=== PATIENT | female | born 1965 | race Caucasian/White ===

== ENCOUNTER → 2018-03-16 08:54 | Outpatient (CLI) | payer BC, SELFPAY | PROVIDERS: Family Provider Internal Medicine; PCP Internal Medicine; Visit Provider Family Medicine | DX: R00.2 Palpitations (principal) | CPT/HCPCS: 93225; 93226 ==

== ENCOUNTER → 2018-03-20 06:45 | Outpatient (CLI) | payer BC, SELFPAY ==
[2018-03-20 08:01] LABS: Absolute Lymphocyte Count 2.33 X10^3/ul (0.83-4.51); Absolute Neutrophil Count 4.6 X10^3/uL (2.0-7.7); Basophil# 0.03 X10^3/uL; Basophil% 0.4 % (0-1); Eosinophil# 0.25 X10^3/uL; Hematocrit 41.6 % (37-47); Hemoglobin 13.9 g/dl (12.0-15.0); Lymphocyte # 2.33 X10^3/ul (4.0); Lymphocyte % 28.4 % (19-41); Mean Corp Hgb Conc 33.4 g/gl (32-36); Mean Corpuscular Hgb 31.3 pg (27.0-32.0); Mean Corpuscular Volume 93.7 fL (81-99); Mean Platelet Vol. 10.7 fl (6.2-12.0); Monocyte# 0.99 X10^3/uL; Monocyte% 12.1 % (0-10); Neutrophil # 4.59 X10^3/uL (2.7-7.7); Platelet Count 286 K/mm3 (150-450); RBC Distribution Width CV 14.1 % (11.6-14.6); RBC Distribution Width SD 46.7 fl (35.1-43.9); Red Blood Count 4.44 M/mm3 (4.2-5.4); White Blood Count 8.2 K/mm3 (4.4-11.0)
[2018-03-20 08:03] LABS: POSITIVE COUNT NO; POSITIVE DIFFERENTIAL NO; POSITIVE MORPHOLOGY NO
[2018-03-20 08:47] LABS: AST(SGOT) 26 U/L (15-37); Alanine Aminotransfer ALT/SGPT 30 U/L (13-56); Albumin, Serum 3.3 g/dL (3.2-5.0); Alkaline Phosphatase 106 U/L (45-117); Anion Gap 9 (5-15); BUN 18 mg/dL (7-18); BUN/Creat Ratio 15.3 RATIO (10-20); Bilirubin, Direct 0.08 mg/dL (0.00-0.30); Calcium,Total 8.5 mg/dL (8.5-10.1); Chloride 107 mmol/L (98-107); Cholesterol 252 mg/dL (200); Creatinine, Serum 1.18 mg/dL (0.55-1.02); EST Glomerular Filtration Rate 51 mL/min (>60); Est Glom Filt Rate - Afr Amer 61 mL/min (>60); Globulin 4.5 g/dL (2.2-4.2); Glucose 89 mg/dL (74-106); High Density Lipoprotein 53 mg/dL; Potassium 3.9 mmol/L (3.5-5.1); Protein, Total 7.8 g/dL (6.4-8.2); Sodium Level 143 mmol/L (136-145); Thyroid Stim Hormone (TSH) 5.65 uIU/mL (0.358-3.74); Triglycerides 160 mg/dL; Very Low Density Lipoprotein 32 mg/dL (5-40)
== END ==
PROVIDERS: Family Provider Internal Medicine; PCP Internal Medicine; Visit Provider Internal Medicine Cardiovascular Disease
DX: I47.1 Supraventricular tachycardia (principal); I47.2 Ventricular tachycardia; R06.02 Shortness of breath
CPT/HCPCS: 36415; 80048; 80061; 80076; 84443; 85025

== ENCOUNTER → 2018-03-25 10:31 | Outpatient (CLI) | payer BC, SELFPAY ==
--- NOTE | 2018-03-25 10:34 | ECHOD_ITS ---
Reason For Study: dyspnea/SOB Procedure This was a 2D Doppler, Color Flow transthoracic echocardiogram. Exam performed in department. Left Ventricle Normal size and thickness. The estimated ejection fraction is 55-60 %. Normal diastology for age. No regional wall motion abnormalities noted. Right Ventricle Normal size and thickness. Normal systolic function. Atria Normal left atrium. Normal right atrium. Normal atrial septum. Mitral Valve The mitral valve is structurally normal. No prolapse or stenosis seen. Trivial mitral valve insufficiency. Tricuspid Valve Normal tricuspid valve. Trivial tricuspid valve insufficiency. Right ventricular systolic pressure estimated to be 31 mmHg. Aortic Valve Trisinus/trileaflet aortic valve. Mild focal aortic valve thickening. Trivial aortic valve insufficiency. Pulmonic Valve Normal pulmonic valve. Great Vessels Normal aortic root. Normal arch. Normal inferior vena cava. Inferior vena cava collapse with sniff. Pericardium/Pleural No pericardial effusion. MMode/2D Measurements & Calculations LVIDd: 3.9 cm IVSd: 0.85 cm Ao root diam: 2.9 cm LVIDs: 2.8 cm LVPWd: 0.90 cm LA dimension: 3.0 cm FS: 28.8 % LAV(MOD-bp): 40.1 ml LA A4 area: 13.8 cm2 RA A4 area: 12.7 cm2 LAV(MOD-bp) Indexed: 23.3 ml/m2 LAV(MOD-sp2): 37.4 ml LAV(MOD-sp4): 36.9 ml Doppler Measurements & Calculations MV E max jessica: 60.7 cm/sec Ao V2 max: 108.6 cm/sec AI max jessica: 353.7 cm/sec MV A max jessica: 40.6 cm/sec Ao max P.7 mmHg AI max P.1 mmHg MV E/A: 1.5 AI dec slope: 173.2 cm/sec2 AI P1/2t: 598.2 msec LV V1 max: 74.5 cm/sec PA V2 max: 73.8 cm/sec TR max jessica: 240.2 cm/sec LV V1 max P.2 mmHg TR max P.3 mmHg Interpretation Summary The estimated ejection fraction is 55-60 %. Normal diastology for age. Trivial mitral valve insufficiency. Trivial tricuspid valve insufficiency. Right ventricular systolic pressure estimated to be 31 mmHg. Trivial aortic valve insufficiency. There is no comparison study available. Ordering Physician: Zak Maxwell Referring Physician: Purvi Jansen M.D. Performed By: Taylor Roblero RDCS, RVT
== END ==
PROVIDERS: Family Provider Internal Medicine; PCP Internal Medicine; Visit Provider Internal Medicine Cardiovascular Disease
DX: R00.2 Palpitations (principal); R06.02 Shortness of breath; I47.1 Supraventricular tachycardia; I47.2 Ventricular tachycardia
CPT/HCPCS: 93306

== ENCOUNTER → 2018-04-03 13:17 | Outpatient (CLI) | payer BC, SELFPAY ==
--- NOTE | 2018-04-03 13:20 | STE_ITS ---
Reason For Study: Arrhythmia Stress Results Protocol: Rohan Protocol Maximum Predicted HR: 166 bpm Target HR: 141 bpm% Max imum Predicted HR: 109 % DurationHeart Rate Stage (mm:ss) (bpm) BPCom ment Baseline 66 108/66 No Chest Pain Rohan Protocol Stage I 3:00 13 4 120/70No Chest Pain Rohan Protocol Stage II 3:00 15 7 146/72No Chest Pain; Mild Dyspnea Rohan Protocol Stage III 0:15 18 1 / No Chest Pain; Dizzy; Mild to Moderate Dyspnea Recovery 89 100/60 No Chest Pain Stress Duration: 6:15 mm:ss Maximum Stress HR: 181 bpmM ETS: 7 Baseline Echocardiogram Findings The estimated ejection fraction is 65 %. Stress Echo Wall motion Data Resting WMIntermediate WMStress WM Resting Wall Motion Wall Motion Stress No regional wall motion No regional wall motion abnormalities noted. abnormalities noted. EKG Data The baseline ECG demonstrates normal sinus rhythm with at rate of _ beats per minute. The patient exercised according to the regular Rohan protocol for a total duration of 6:15. The maximum heart rate attained was 181 beats per minute. This was 109% of maximum predicted heart rate. The patient exercised into stage 3 of the Rohan protocol. At peak exercise, upsloping ST changes only were noted, which did not meet the criteria for ischemia. No clinical angina was noted. Interpretation Summary The estimated ejection fraction is 65 %. Abnormal, adequate, treadmill echocardiogram. Positive for subtle ischemia along the inferior lateral gastelum. No anginal symptoms noted. Rare PVCs noted. Appropriate blood pressure response to exercise. Below average exercise capacity for age. Test terminated due to dizziness and dyspnea. Final LVEF of 60%. No complications. Ordering Physician: Zak Maxwell Referring Physician: Zak Maxwell Performed By: Yuly Rodriguez, RDCS, RVT
== END ==
PROVIDERS: Family Provider Internal Medicine; PCP Internal Medicine; Visit Provider Internal Medicine Cardiovascular Disease
DX: R00.2 Palpitations (principal); R06.02 Shortness of breath; I47.1 Supraventricular tachycardia; I47.2 Ventricular tachycardia
CPT/HCPCS: 93017; 93350

== ENCOUNTER → 2018-04-06 06:46 | Outpatient (CLI) | payer BC, SELFPAY ==
--- NOTE | 2018-04-07 08:50 | PFTCOMP ---
COMPLETE PULMONARY FUNCTION TEST INTERPRETATION Brief HPI: Patient is a 52 year old female, currently under the care of Dr. Maxwell, who presents to [facility] for complete pulmonary function tests secondary to diagnosis of dyspnea. Respiratory therapist reports good effort and reproducible results. Interpretation: Forced expiration spirometry shows a moderate large airways obstructive ventilatory defect with an FEV1 of 69% predicted. There is no significant bronchodilator response by strict ATS criteria. Spirograms are of good quality and plateau slowly, indicating slowly emptying areas of the lungs. The respiratory flow volume loop shows decreased expiratory flow rates at high lung volumes consistent with small airways obstruction. Lung volumes by body plethysmography show a decreased total lung capacity at 4.55 L, 82% predicted. All other lung volumes are reduced symmetrically. Diffusion capacity by carbon monoxide is normal at 81% predicted. The airway resistance is normal. No previous pulmonary function tests were available for review. Impression: Moderate mixed ventilatory defect with relative preservation of diffusing capacity.
== END ==
PROVIDERS: Family Provider Internal Medicine; PCP Internal Medicine; Visit Provider Internal Medicine Cardiovascular Disease
DX: I47.1 Supraventricular tachycardia (principal); I47.2 Ventricular tachycardia; R00.2 Palpitations; R06.02 Shortness of breath
CPT/HCPCS: 94060; 94726; 94729

== ENCOUNTER 2018-04-14 07:48 | Day surgery (SDC) | payer BC, SELFPAY ==
[2018-04-13 09:27] VITALS: BMI 21.4
[2018-04-14] VITALS (12 sets, daily range): BP systolic 106–131; BP diastolic 65–81; PULSE 60–72; RESP 16–18; TEMP 36.6–37.1; O2SAT 96–100
[2018-04-14 13:00] LABS: ACT Activated Clotting Time 219 sec (74-137)
--- NOTE | 2018-04-14 13:00 | EKG12_ITS ---
Test Reason : PRE-CATH Blood Pressure : / mmHG Vent. Rate : 057 BPM Atrial Rate : 057 BPM P-R Int : 102 ms QRS Dur : 084 ms QT Int : 422 ms P-R-T Axes : 056 058 053 degrees QTc Int : 410 ms Sinus bradycardia with short AR Otherwise normal ECG Confirmed by TOM JAQUEZ, WILIAN ([id number]), book editor LYNDSAY ADAME ([id number]) on 04/17/2018 8:34:41 AM Referred By: Zak Maxwell Confirmed By:WILIAN SANTOS MD
--- NOTE | 2018-04-14 13:10 | CL.I_ITS ---
Patient Name: ELSA ADAME Study Date: 04/14/2018 Performing: Zak Maxwell MD Ht: 66.92 inches 170 cm : 1965 Wt: 136.69 lbs 62 kg Age: 52 Gender: female BSA: 1.72 PROCEDURE(S) PERFORMED [id number]-WKQ/COR/LV [id number], CORONARY OR GRAFT, INITIAL VESSEL CLINICAL PROFILE AND CO-MORBIDITIES Indications: Suspected CAD, Other; abnormal stress test, dyspnea on exertion., New Onset Angina < = 2 months Heart Failure: None Stress/Imaging Stress Echocardiogram: Yes Result: Positive Intermediate Risk Stress Echocardiogra m: Positive Intermediate Risk Angina Classification Anginal Classification w/in 2 Weeks: CCS I CAD Presentations: Other: Dyspnea on exertion Comorbidities/Risk Factors: Hypertension Dyslipidemia CONCLUSIONS Single vessel CAD of the ostial LM Non obstructive coronary arteries Segmented LV systolic dysfunction- Mild Abnormal FFR of 0.82 of ostial LM with left dominant system; non-obstructive CAD of LAD and LCX. RECOMMENDATIONS Staged for FFR ASA Indefinitley CV surgical consult for CABG to LAD and dominant LCX vs high risk PCI/MANJIT of ostial LM. Follow up with Dr. Maxwell Sheath removal in ICU once ACT<170 sec. Continue asa/plavix for now in case pt is a candidate for LM stenting. No changes to ostial LM at conclusion of FFR of LM. DESCRIPTION OF PROCEDURE The patient arrived to the procedure lab. The risks and benefits of the procedure as well as a full d escription of our services here and lack of surgical backup were fully explained to the patient and/o r their significant other prior to the catheterization. The Timeout was completed, verifying the sunita ect patient and procedure. The patient's procedural site was prepped and draped in the usual fashion. Local anesthetic was given subcutaneously to right groin region with Lidocaine 2%. Using a modified Seldinger technique, arterial access was obtained via the right femoral artery, a 4Fr sheath was inse rted. Left Coronary Artery selective angiography was performed in multiple views using a 4 Fr. JL4 c atheter. Right Coronary Artery selective angiography was then performed in multiple views using a 4 F r. 3DRC catheter. Left Ventriculography was performed in LÓPEZ projection using a 4 Fr. Pigtail cathete r. LV to AO pullback pressures were then recordedThe images were reviewed and options discussed. A de cision was then made to proceed with an Intervention, IVUS or other adjunct procedure. Arterial sheath was exchanged for a 6 Fr Sheath. EBu 3.5 Guide catheter was inserted JL4 Guide cathet er was inserted and engaged into the LCA. The FFR/iFR wire was inserted. The arterial sheath was mora tured in place and capped CORONARY ANGIOGRAPHY DOMINANCE: Left Dominant LEFT HEART ASSESSMENT Left Ventricular Ejection Fraction: by LV Gram 65 % Normal Left Ventricular End Diastolic Pressure Apical Hypokinesis - Mild LEFT MAIN: 70 % Stenosis LEFT ANTERIOR DECENDING ARTERY: MID LAD: 30 % Stenosis CIRCUMFLEX ARTERY: PROX CIRC: 30 % Stenosis RIGHT CORONARY ARTERY: Angiographically normal INTERVENTION INFORMATION LESION SITE: Left Main (Ostial) Lesion Complexity: High/C, lesion at bifurcation: No, thrombus present: No, lesion length: 8 mm, olive rit lesion: Yes Pre Stenosis: 70 % Pre intervention AARON flow: 3 PROCEDURE: FFR Post Stenosis: 70 % Post intervention AARON flow: 3 Lesion Devices: [employer] ( Formerly [employer]) Coronary FFR Wire Medtronic 6 Fr EBU3.5 100cm Guide Catheter Medtronic 6 Fr JL4.0 100cm Guide Catheter COMPLICATIONS No Complications PROCEDURE MEDICATIONS Versed 1 mg IV Oxygen: 2 L/min via nasal cannula Adenosine drip for FFR 17.4 ml IV @ 04/14/2018 12:48:05 Heparin 5000 unit(s) IV 04/14/2018 12:35:36 Nitro 200 mcg IC 04/14/2018 12:23:59 Nitro 200 mcg IC 04/14/2018 12:23:59 IV Bolus: .9 NaCl 150 ml total 04/14/2018 12:39:42 IV Fluids: .9 NaCl decreased to 150 ml/hr 04/14/2018 12:58:55 SUMMARY OF HEMODYNAMIC DATA Time AIR REST ECG 08:05:48 AO 122/57 (83) SA 12:19:21 LV 119/-15, 6 12:30:13 LV 120/-15, 6 12:30:19 LVp 121/-19, 5 12:30:26 AOp 124/60 (86) 12:30:31 Signed By Zak Maxwell MD On 04/14/2018 13:09:42 Zak Maxwell MD
[2018-04-14 14:36] LABS: ACT Activated Clotting Time 175 sec (74-137)
[2018-04-14] MEDS: 0.9% Normal Saline 1,000 ML 150 ML IV (15:44)
== END 2018-04-14 21:28 | disposition home or self-care (01) ==
LOC: CLSP 07:49 → PCU 15:13
PROVIDERS: Family Provider Internal Medicine; PCP Internal Medicine; Visit Provider Internal Medicine Cardiovascular Disease
DX: R94.31 Abnormal electrocardiogram [ECG] [EKG] (principal); I20.9 Angina pectoris, unspecified; R06.00 Dyspnea, unspecified; I47.2 Ventricular tachycardia; R06.02 Shortness of breath; E03.2 Hypothyroidism due to medicaments and other exogenous substances; N26.1 Atrophy of kidney (terminal); Z86.718 Personal history of other venous thrombosis and embolism; Z87.891 Personal history of nicotine dependence; Z85.850 Personal history of malignant neoplasm of thyroid; Z79.82 Long term (current) use of aspirin; Z79.899 Other long term (current) drug therapy
CPT/HCPCS: 85347; 93005; 93458; 93571; 99152; 99153; J0153; J7030; J7040; Q9967; C1769; C1887; C1894

== ENCOUNTER → 2018-04-23 08:37 | Outpatient (CLI) | payer BC, SELFPAY ==
--- NOTE | 2018-04-23 08:39 | CDU_ITS ---
Reason For Study: bruit Rt. Velocities/BP Lt. Velocities/BP Prox CCA 105/27.6 cm/sec. Prox CCA 119/30.5 cm/sec. Mid CCA 116/33.4 cm/sec. Mid CCA 92.6/22.3 cm/sec. Dist CCA 87.4/29.3 cm/sec. Dist CCA 77.4/24.0 cm/sec. Prox ICA 72.7/25.2 cm/sec. Prox ICA 59.8/16.4 cm/sec. Mid ICA 92.0/33.4 cm/sec. Mid ICA 84.4/29.9 cm/sec. Dist ICA 76.0/27.4 cm/sec. Dist ICA 76.8/33.4 cm/sec. Rt. ICA/CCA = .8. Lt. ICA/CCA = .9. Prox ECA 101/24.0 cm/sec. Prox ECA 69.3/12.7 cm/sec. Rt. Vert. 48.1/13.5 cm/sec. Lt. Vert. 55.7/17.0 cm/sec. Right Extracranial There is intimal thickening but no significant atherosclerotic plaque noted in the right common carotid artery. There is intimal thickening but no significant atherosclerotic plaque noted in the right internal carotid artery. There is intimal thickening but no significant atherosclerotic plaque noted in the right external carotid artery. Antegrade flow is noted in the right vertebral artery. Left Extracranial There is intimal thickening but no significant atherosclerotic plaque noted in the left common carotid artery. There is intimal thickening but no significant atherosclerotic plaque noted in the left internal carotid artery. There is intimal thickening but no significant atherosclerotic plaque noted in the left external carotid artery. Antegrade flow is noted in the left vertebral artery. Procedure Carotid Duplex [id number]. The exam was diagnostic. Exam performed in department. Interpretation Summary No hemodynamically significant plague or stenosis bilateral extracranial internal carotid arteries with <50% stenosis bilaterally. Normal flow bilateral external carotids Patent and antegrade vertebrals bilaterally Ordering Physician: Zak Maxwell Performed By: Paddy Palomo RVT
== END ==
PROVIDERS: Family Provider Internal Medicine; PCP Internal Medicine; Visit Provider Internal Medicine Cardiovascular Disease
DX: I25.118 Atherosclerotic heart disease of native coronary artery with other forms of angina pectoris (principal); R09.89 Other specified symptoms and signs involving the circulatory and respiratory systems
CPT/HCPCS: 93880

== ENCOUNTER → 2018-07-17 12:36 | Outpatient (CLI) | payer BC, SELFPAY ==
--- NOTE | 2018-07-17 12:53 | PCM.CR.HP2 ---
CR - History & Physical - General Arrival date:: 07/17/18 Arrival time:: 12:53 Date of Referral:: 07/09/18 Date of CR Evaluation:: 07/17/18 Referring Physician: Dr. Zak Maxwell Primary Diagnosis: Z95.1 05/12/2018 - History of Present Cardiac Event Onset Date: Enter Onset Date of cardiac illnesses in Comment field below Current stable Angina Pectoris:: No Acute Myocardial Infarction within 12 months:: No Coronary Artery Bypass Graft:: Yes Heart valve replacement or repair:: No - Medications Home Medications: Ambulatory Orders Medication Instructions Recorded Levothyroxine Sodium [Levoxyl] 75 mcg PO QODAY 12/15/15 Multivitamin [Daily Multiple 1 ea PO DAILY 12/15/15 Vitamin] aspirin 81 mg tablet,delayed 81 mg PO QDAY 03/19/18 release cholecalciferol (vitamin D3) 1,000 1,000 unit PO QDAY 03/19/18 unit tablet acetaminophen 325 mg tablet 650 mg PO Q6H PRN tab 06/18/18 ferrous sulfate 325 mg (65 mg 325 mg PO DAILY tab 06/18/18 iron) tablet mometasone 0.1 % topical ointment 1 applic TOPICAL DAILY 06/18/18 ascorbic acid (vitamin C) 1,000 mg 1 g PO DAILY tab 07/09/18 tablet atorvastatin 40 mg tablet 40 mg PO DAILY #90 tab 07/09/18 sennosides 8.6 mg tablet 8.6 mg PO DAILY tab 07/09/18 metoprolol tartrate 25 mg tablet 12.5 mg PO BID #30 tab 07/13/18 - Allergies Allergies/Adverse Reactions: Allergies amlodipine besylate [From [facility]] Adverse Reaction (Verified 07/09/18 13:39) Swelling - Sleep Disorder Evaluation Hx of Sleep Apnea: No Do you snore loudly (louder than talking or can be heard through closed doors)?: No Do you often feel tired/ fatigued/ sleepy during daytime?: No Has anyone observed you stop breathing during sleep?: No History of Hypertension (for STOP score): Yes STOP Results: Negative Advanced Directives - Advanced Directives Power of Vegetable Cook: No Living Will: No Advance Directives Information Provided: No Advance Directives on File: No DNR Order?:: No Past Medical History - Past Medical Illness Medical History: Past Medical History (Last Updated 07/09/18 @ 13:41 by Tran Bains) History of adrenal adenoma (Chronic) Onset Date: ~2000 Z86.018 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 Maxwell, [facility]: refer to Kevin for PCI vs. 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 Maxwell, [facility]: refer to Kevin for PCI vs. CABG left main History of thyroidectomy (Chronic) Onset Date: ~2005 E89.0 History of breast biopsy Z98.890 benign History of colonoscopy Onset Date: ~08/23/13 Z98.890 History of colposcopy Onset Date: ~2008 Z98.890 History of hysteroscopy Onset Date: ~2014 Z98.890 with biopsy wwo D&C and/or polypectomy History of laparoscopic-assisted vaginal hysterectomy Onset Date: ~2015 Z90.710 secondary to fibroids, still has ovaries History of thumb surgery Onset Date: 02/17/14 Z98.890 [facility] right thumb History of loop electrical excision procedure (LEEP) Z98.890 - Family History Summary Family History: Family History (Last Reviewed 07/09/18 @ 11:49 by Tran Nolt) Mother Hypertension Hyperlipidemia Peripheral vascular disease CAD (coronary artery disease) Father COPD (chronic obstructive pulmonary disease) Lung cancer Social History - Smoking History Smoking Status: Former smoker Years Smokin Packs Smoked per Day: 1 Hx Tobacco Use: Yes Hx Smoking Exposure: Yes - Alcohol Use Alcohol Usage: No - Substance Abuse Hx Substance Use: No - Occupation Occupation (List type of work in comments):: Employed Hours worked per day:: 9 - Hobbies, Recreation, Social Activities Hobbies: Sewing, Other - shopping Recreational Activities: I am able to engage in all my recreational activities Social Environment - Status Marital Status: - Current Living Arrangements Living Environment:: Spouse - Children How many children do you have?: 0 - Safety Do you feel safe in your surroundings?: Yes - Assistance Do you need any assistance at home?: none Review of Systems - Review of Systems Hints: Right click = Denies ([place]). Left click = Reports ([place]) Review of Present Symptoms: Reports: Shortness of Breath with Exertion, Operative Discomfort - incisional pain. Denies: Shortness of Breath at Rest, PVD, Angina, Wound Healing, Dizziness/Lightheadedness, Fatigue, Heart Arrhythmia/Irregularities, Appetite - Normal, Appetite - Special Diet, Sleep - Normal, Sexual Changes - Pain Is Patient Pain Free?: No Pain Location: other - incisional pain Risk Factor Assessment - Vital Signs Pulse Ox: 98 - Pulse Pulse Rate: 61 Pulse Rhythm: Regular - Hypertension Blood Pressure Sitting - Left Arm: 110/60 - Diabetes Nutrition Referral for Diabetes: No - Obesity Height: 1.7 m Weight:: 64.864 kg Weight in Pounds: 143.0 lbs Weight Source: Standing Scale Body Mass Index (BMI): 22.4 Nutritional Referral for Obesity: No - Physical Inactivity Physical Inactivity: Reg Exercise 30 min/day - Risk Stratification Risk Guidelines: Lowest Risk: Risk Factor for Diabetes, Risk Factor for Obesity, Risk Factor for Sedentary Lifestyle, Risk Factor for Depression, Moderate Risk: Risk Factor for Smoking, Risk Factor for Dyslipidemia, Risk Factor for Hypertension - For Smoking Smoking Risk Guidelines: Smoking Low Risk: None or quit greater than 6 months ago. Smoking Moderate Risk: Smoker or quit 6 months or less ago. Smoking High Risk: Smoker - For Dyslipidemia Dyslipidemia Risk Guidelines: Low Risk: Moderate Risk: High Risk: 15-25% fat 25.1-29% fat >/= 30% fat. <7% sat fat 7-9% sat fat >9% sat fat. <150 mg chol 150-299 mg chol >/= 300 mg chol. LDL <100 LDL 100-129 LDL >/= 130. Chol/HDL ratio <5.0 Chol/HDL ratio 5.0-6.0 Chol/HDL ratio >6.0. Triglycerides <100 Triglycerides 100-149 Triglycerides >/= 150 - For Diabetes Mellitus Diabetes Risk Guidelines: Diabetes Low Risk: HgA1c <6.5% and/or FBG <120. Diabetes Moderate Risk: HgA1c 6.6-7.9% and/or FBG 120-180. Diabetes High Risk: HgA1c >/= 8% and/or FBG >180 - For Obesity/Overweight Obesity/Overweight Risk Guidelines: Obesity Low Risk: BMI <25.0. Obesity Moderate Risk: BMI 25-29.9. Obesity High Risk: BMI >/= 30.0 - For Hypertension Hypertension Risk Guidelines: Hypertension Low Risk: Systolic <120 and Diastolic <80. Hypertension Moderate Risk: Systolic 120-139 and Diastolic 80-89. Hypertension High Risk: Systolic >/= 140 and Diastolic >/= 90 - For Sedentary Lifestyle Sedentary Lifestyle Risk Guidelines: Sedentary Lifestyle Low Risk: >/= 1,500 kcal/week. Sedentary Lifestyle Moderate Risk: 700-1,499 kcal/week. Sedentary Lifestyle High Risk: < 700 kcal/week - For Depression Depression Risk Guidelines: Depression Low Risk: Not clinically depressed. Depression Moderate Risk: Mildly depressed. Depression High Risk: Clinically depressed - Family History Family History: Family History (Last Reviewed 07/09/18 @ 11:49 by Tran Bains) Mother Hypertension Hyperlipidemia Peripheral vascular disease CAD (coronary artery disease) Father COPD (chronic obstructive pulmonary disease) Lung cancer Motivation - Motivation to Participate On a scale of 1 to 10, how prepared are you to commit to attending program?: 10 What do you see as barriers to successfully being able to complete the program?: none What do you see as the benefits of succesfully completing the program? In other words, what do you hope to get out of participating in the program?: education, starting a proper exercise routine Do you have a spouse or signficant other, family or friends who will help support you to complete the program?: supports
--- NOTE | 2018-07-17 12:57 | CR.HP_ITS ---
CR - History & Physical - General Arrival date:: 07/17/18 Arrival time:: 12:53 Date of Referral:: 07/09/18 Date of CR Evaluation:: 07/17/18 Referring Physician: Dr. Zak Maxwell Primary Diagnosis: Z95.1 05/12/2018 - History of Present Cardiac Event Onset Date: Enter Onset Date of cardiac illnesses in Comment field below Current stable Angina Pectoris:: No Acute Myocardial Infarction within 12 months:: No Coronary Artery Bypass Graft:: Yes Heart valve replacement or repair:: No - Medications Home Medications: Ambulatory Orders Medication Instructions Recorded Levothyroxine Sodium [Levoxyl] 75 mcg PO QODAY 12/15/15 Multivitamin [Daily Multiple 1 ea PO DAILY 12/15/15 Vitamin] aspirin 81 mg tablet,delayed 81 mg PO QDAY 03/19/18 release cholecalciferol (vitamin D3) 1,000 1,000 unit PO QDAY 03/19/18 unit tablet acetaminophen 325 mg tablet 650 mg PO Q6H PRN tab 06/18/18 ferrous sulfate 325 mg (65 mg 325 mg PO DAILY tab 06/18/18 iron) tablet mometasone 0.1 % topical ointment 1 applic TOPICAL DAILY 06/18/18 ascorbic acid (vitamin C) 1,000 mg 1 g PO DAILY tab 07/09/18 tablet atorvastatin 40 mg tablet 40 mg PO DAILY #90 tab 07/09/18 sennosides 8.6 mg tablet 8.6 mg PO DAILY tab 07/09/18 metoprolol tartrate 25 mg tablet 12.5 mg PO BID #30 tab 07/13/18 - Allergies Allergies/Adverse Reactions: Allergies amlodipine besylate [From [facility]] Adverse Reaction (Verified 07/09/18 13:39) Swelling - Sleep Disorder Evaluation Hx of Sleep Apnea: No Do you snore loudly (louder than talking or can be heard through closed doors)?: No Do you often feel tired/ fatigued/ sleepy during daytime?: No Has anyone observed you stop breathing during sleep?: No History of Hypertension (for STOP score): Yes STOP Results: Negative Advanced Directives - Advanced Directives Power of Diagnostics Sales Developer: No Living Will: No Advance Directives Information Provided: No Advance Directives on File: No DNR Order?:: No Past Medical History - Past Medical Illness Medical History: Past Medical History (Last Updated 07/09/18 @ 13:41 by Tran Bains) History of adrenal adenoma (Chronic) Onset Date: ~2000 Z86.018 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 Maxwell, [facility]: refer to Kevin for PCI vs. 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 Maxwell, [facility]: refer to Kevin for PCI vs. CABG left main History of thyroidectomy (Chronic) Onset Date: ~2005 E89.0 History of breast biopsy Z98.890 benign History of colonoscopy Onset Date: ~08/23/13 Z98.890 History of colposcopy Onset Date: ~2008 Z98.890 History of hysteroscopy Onset Date: ~2014 Z98.890 with biopsy wwo D&C and/or polypectomy History of laparoscopic-assisted vaginal hysterectomy Onset Date: ~2015 Z90.710 secondary to fibroids, still has ovaries History of thumb surgery Onset Date: 02/17/14 Z98.890 [facility] right thumb History of loop electrical excision procedure (LEEP) Z98.890 - Family History Summary Family History: Family History (Last Reviewed 07/09/18 @ 11:49 by Tran Nolt) Mother Hypertension Hyperlipidemia Peripheral vascular disease CAD (coronary artery disease) Father COPD (chronic obstructive pulmonary disease) Lung cancer Social History - Smoking History Smoking Status: Former smoker Years Smokin Packs Smoked per Day: 1 Hx Tobacco Use: Yes Hx Smoking Exposure: Yes - Alcohol Use Alcohol Usage: No - Substance Abuse Hx Substance Use: No - Occupation Occupation (List type of work in comments):: Employed Hours worked per day:: 9 - Hobbies, Recreation, Social Activities Hobbies: Sewing, Other - shopping Recreational Activities: I am able to engage in all my recreational activities Social Environment - Status Marital Status: - Current Living Arrangements Living Environment:: Spouse - Children How many children do you have?: 0 - Safety Do you feel safe in your surroundings?: Yes - Assistance Do you need any assistance at home?: none Review of Systems - Review of Systems Hints: Right click = Denies ([place]). Left click = Reports ([place]) Review of Present Symptoms: Reports: Shortness of Breath with Exertion, Operative Discomfort - incisional pain. Denies: Shortness of Breath at Rest, PVD, Angina, Wound Healing, Dizziness/Lightheadedness, Fatigue, Heart Arrhythmia/Irregularities, Appetite - Normal, Appetite - Special Diet, Sleep - Normal, Sexual Changes - Pain Is Patient Pain Free?: No Pain Location: other - incisional pain Risk Factor Assessment - Vital Signs Pulse Ox: 98 - Pulse Pulse Rate: 61 Pulse Rhythm: Regular - Hypertension Blood Pressure Sitting - Left Arm: 110/60 - Diabetes Nutrition Referral for Diabetes: No - Obesity Height: 1.7 m Weight:: 64.864 kg Weight in Pounds: 143.0 lbs Weight Source: Standing Scale Body Mass Index (BMI): 22.4 Nutritional Referral for Obesity: No - Physical Inactivity Physical Inactivity: Reg Exercise 30 min/day - Risk Stratification Risk Guidelines: Lowest Risk: Risk Factor for Diabetes, Risk Factor for Obesity, Risk Factor for Sedentary Lifestyle, Risk Factor for Depression, Moderate Risk: Risk Factor for Smoking, Risk Factor for Dyslipidemia, Risk Factor for Hypertension - For Smoking Smoking Risk Guidelines: Smoking Low Risk: None or quit greater than 6 months ago. Smoking Moderate Risk: Smoker or quit 6 months or less ago. Smoking High Risk: Smoker - For Dyslipidemia Dyslipidemia Risk Guidelines: Low Risk: Moderate Risk: High Risk: 15-25% fat 25.1-29% fat >/= 30% fat. <7% sat fat 7-9% sat fat >9% sat fat. <150 mg chol 150-299 mg chol >/= 300 mg chol. LDL <100 LDL 100-129 LDL >/= 130. Chol/HDL ratio <5.0 Chol/HDL ratio 5.0-6.0 Chol/HDL ratio >6.0. Triglycerides <100 Triglycerides 100-149 Triglycerides >/= 150 - For Diabetes Mellitus Diabetes Risk Guidelines: Diabetes Low Risk: HgA1c <6.5% and/or FBG <120. Diabetes Moderate Risk: HgA1c 6.6-7.9% and/or FBG 120-180. Diabetes High Risk: HgA1c >/= 8% and/or FBG >180 - For Obesity/Overweight Obesity/Overweight Risk Guidelines: Obesity Low Risk: BMI <25.0. Obesity Moderate Risk: BMI 25-29.9. Obesity High Risk: BMI >/= 30.0 - For Hypertension Hypertension Risk Guidelines: Hypertension Low Risk: Systolic <120 and Diastolic <80. Hypertension Moderate Risk: Systolic 120-139 and Diastolic 80-89. Hypertension High Risk: Systolic >/= 140 and Diastolic >/= 90 - For Sedentary Lifestyle Sedentary Lifestyle Risk Guidelines: Sedentary Lifestyle Low Risk: >/= 1,500 kcal/week. Sedentary Lifestyle Moderate Risk: 700-1,499 kcal/week. Sedentary Lifestyle High Risk: < 700 kcal/week - For Depression Depression Risk Guidelines: Depression Low Risk: Not clinically depressed. Depression Moderate Risk: Mildly depressed. Depression High Risk: Clinically depressed - Family History Family History: Family History (Last Reviewed 07/09/18 @ 11:49 by Tran Bains) Mother Hypertension Hyperlipidemia Peripheral vascular disease CAD (coronary artery disease) Father COPD (chronic obstructive pulmonary disease) Lung cancer Motivation - Motivation to Participate On a scale of 1 to 10, how prepared are you to commit to attending program?: 10 What do you see as barriers to successfully being able to complete the program?: none What do you see as the benefits of succesfully completing the program? In other words, what do you hope to get out of participating in the program?: education, starting a proper exercise routine Do you have a spouse or signficant other, family or friends who will help support you to complete the program?: supports
--- NOTE | 2018-07-17 13:07 | CR.ITP_ITS ---
General Information - General Information Admitting Diagnosis: Z95.1 CABG 05/12/2018 - Education/Goals Barriers to Learning: None Cardiac Rehabilitation Goals: 1. Maintain the individual as the primary focus of care. 2. To improve the patient's quality of life. 3. Identification of cardiac risk factors and provide cardiac risk factor management. 4. Enhance the psychosocial status of the patient. 5. Reconditioning enough to allow the patient to resume customary activities. 6. Control symptoms of cardiac disease Scale for measuring improvement of personal goals: Enter appropriate number in Comments. 2 = Unchanged. 3 = Slightly Better. 4 = Moderate Improvement. 5 = Met my Goal Personal Goals: Initial Assessment: Participate in home exercise program, Improve knowledge of cardiac disease, Improve diet and eating habits (eat healthier) Exercise - Initial Assessment - Visit Date of Eval: 07/17/18 - initial eval - Stages of Change Stages of Change:: Contemplate - Exercise Prescription Mode:: Treadmill, Biodyne, Airdyne, NuStep, Arm Ergometer Angina with exercise?: No Target Heart Rate:: 116-124 - Hypertension Do any of the following apply?: Yes Resting Blood Pressure:: 110/60 - Intervention Home Exercise/Activity Goal:: Sitting Time <3 hrs/day - Education Goals:: Warm-up, RPE AL Scale, S/S, Safe Exercise, Self-Monitoring - Exercise Program Goals Exercise Program Goals: Aerobic Activity >30 min, B/P <130/80 Nutrition - Initial Assessment - Program Goals Nutrition Program Goals: LDL <70. Total Cholesterol <200. HDL >45. Triglycerides <150. HgbA1C <7%. BMI <25 - Visit Date of Assessment:: 07/17/18 - Stages of Change Stages of Change:: Contemplate - Diabetes Diabetes:: No - Weight Management Height: 1.7 m Weight:: 64.864 kg Total Score:: 3 - Intervention Referral to dietitian:: No Referral to Diabetic Clinic:: No Will attend diet classes:: Yes - Education Gave educational materials for:: Signs & symptoms of hypoglycemia, Signs & symptoms of hyperglycemia, Relate diabetes to coronary artery disease, Healthy eating Tobacco - Initial Assessment - Program Goals Tobacco Program Goals: Complete smoking cessation. Attend education classes. Improve Knowledge Test score - Stage of Change Stages of Change:: Contemplate - Learning Barriers Total Score:: 16 - Family Support Do you have family support?: Yes - Tobacco Use Tobacco Use: Non-smoker How long ago did you quit using tobacco products?: Greater than or equal to 6 months ago Years Smokin - Intervention Smoking Cessation Referral:: No Individual Education/Counseling:: No Education Schedule Given:: Yes - Education Gave educational material for:: Tobacco triggers, Coronary artery disease, Risk factors, Sexuality, Medical compliance, Cardiac A&P, Angina signs & symptoms Psychosocial - Initial Assess - Target Goals Target Goals: Assess presence or absence of depression. Using a valid screening tool, maximizes coping skills. Positive support system - Stages of Change Stages of Change:: Contemplate - Psychosocial Test Tool Used:: HANDS Depression Questionnaire Tests Completed: SF - 36 survey completed, Mood Scale Test Total Mood Screening Score:: 0 Self-Efficacy Score:: 7 - Intervention PS - Interventions: Yes Attend Stress Management Classes, Yes Uses Stress Management Skills, No Referral to Mental Health, No Referral to [facility] Case Management, No Referral to Physician - Education Gave educational materials for:: Coping techniques, Signs & symptoms of depression, Stress management, Relaxation techniques - Assistive Devices Assistive Devices:: None Fall Risk Assessed:: Yes Patient Health Questionnaire Initial Assessment 1. Little interest or pleasure in doing things: Not at all 2. Feeling down, depressed, or hopeless: Not at all 3. Trouble falling or staying asleep, or sleeping too much: Not at all 4. Feeling tired or having little energy: Not at all 5. Poor appetite or overeating: Not at all 6. Feeling bad about yourself -- or that you are a failure or have let yourself or your family down: Not at all 7. Trouble concentrating on things, such as reading the newspaper or watching television: Not at all 8. Moving or speaking so slowly that other people could have noticed. Or the opposite - being so fidgety or restless that you have been moving around a lot more than usual: Not at all 9. Thoughts that you would be better off , or of hurting yourself in some way: Not at all How difficult have these problems made it for you to do your work, take care of things at home, or get along with other people?: Not difficult at all Total Score: 0 BRANDON-Q SV Test - Statements CAD is a disease of the arteries in the heart: False Examples of risk factors for heart disease: True Angina is chest pain or discomfort: True The benefits of resistance training include: True Eating more meat and dairy products: False Anti-platelet medications such as aspirin are important: True The only effective way to manage stress: False An exercise warm-up slowly increases heart rate: I Don't Know Prepared, processed foods usually have high sodium: True Depression is common after a heart attack: True The statin medications lower cholesterol: True To control blood pressure, lower the amount of sodium: True If someone gets chest discomfort during walking: False Transfats are partially hydrogenated vegetable oils: True Sleep apnea that is not treated increases the risk: I Don't Know To control cholesterol, one should become a vegetarian: True Someone knows if he/she is exercising at the right level: I Don't Know Diabetes cannot be prevented with exercise & health eating: False Stress is a large risk for heart attack: True A diet that can help lower blood pressure is rich in: True - Total Score Total Correct Responses: 16 Self-Efficacy Initial Assessment We would like to know how confident you are in doing certain activities. Please select your confidence level for:: Select your confidence level for the jessica wing using the scale 1-10 where 1 is not at all confident and 10 is totally confident. Your score is the average of all 6 responses. Fatigue: How confident are you that you can keep the fatigue caused by your disease from interfering with the things you want to do? Select Number: 6 Physical Discomfort or Pain: How confident are you that you can keep the physical discomfort or pain of your disease from interfering with the things you want to do? Select Number: 6 Emotional Distress: How confident are you that you can keep the emotional distress caused by your disease from interfering with the things you want to do? Select Number: 9 Other Symptoms or Health Problems: How confident are you that you can keep other symptoms or health problems from interfering with the things you want to do? Select Number: 8 Different Tasks and Activities: How confident are you that you can do the different tasks and activities needed to manage your health condition so as to reduce your need to see a doctor? Select Number: 8 Medication: How confident are you that you can do things other than just taking medication to reduce how much your illness affects your everyday life? Select Number: 10 Total Score:: 7 Nutrition Survey - Nutrition Survey Instructions Scoring Instructions: Scoring is as follows: Yes = 1 points. No = 0 point. Patient score that is >/=12 is considered to be at potential nutritional risk and could benefit from a referral to a registered dietitian. - Nutrition Survey Initial Have you lost >10 lbs over the past 2 months without trying?: No Are you following a special diet at home for diabetes, low fat, or low salt?: Yes Are you interested in meeting with a dietitian for help understanding your diet?: Yes Do you eat less than 3 meals a day?: Yes Do you eat fatty meats (oquendo, sausage, ribs, etc), fried foods, desserts, large amounts of salad dressings, margarine, butter, or cheese most days?: No Do you have food allergies? [Enter types in comment field]: No Do you eat in restaurants more than 3 times a week?: No Do you season food with salt, seasoning salt, or garlic salt?: No Do you used canned, boxed, frozen meals, or soups, seasoning packets?: No Total Score:: 3
[2018-07-17 13:33] VITALS: BP 110/60; PULSE 61; O2SAT 98; BMI 22.4
[2018-07-17 13:44] VITALS: BP 110/60
== END ==
PROVIDERS: Family Provider Internal Medicine; PCP Internal Medicine; Referring Provider Internal Medicine Cardiovascular Disease; Visit Provider Internal Medicine Cardiovascular Disease
DX: Z95.1 Presence of aortocoronary bypass graft (principal); Z79.899 Other long term (current) drug therapy; Z87.891 Personal history of nicotine dependence

== ENCOUNTER 2018-08-14 08:00 | Outpatient (RCR) | payer BC, SELFPAY | END 2018-08-14 23:59 | LOC: CR 08:00 | PROVIDERS: Family Provider Internal Medicine; PCP Internal Medicine; Referring Provider Internal Medicine Cardiovascular Disease; Visit Provider Internal Medicine Cardiovascular Disease | DX: I25.118 Atherosclerotic heart disease of native coronary artery with other forms of angina pectoris (principal); I47.2 Ventricular tachycardia; I47.1 Supraventricular tachycardia; Z95.1 Presence of aortocoronary bypass graft | CPT/HCPCS: 93798 ==

== ENCOUNTER 2018-09-14 08:00 | Outpatient (RCR) | payer BC, SELFPAY ==
[2018-07-17 13:33] VITALS: BMI 22.4
--- NOTE | 2018-08-24 10:16 | CR.ITP_ITS ---
General Information - General Information Admitting Diagnosis: CABG - Education/Goals Cardiac Rehabilitation Goals: 1. Maintain the individual as the primary focus of care. 2. To improve the patient's quality of life. 3. Identification of cardiac risk factors and provide cardiac risk factor management. 4. Enhance the psychosocial status of the patient. 5. Reconditioning enough to allow the patient to resume customary activities. 6. Control symptoms of cardiac disease Scale for measuring improvement of personal goals: Enter appropriate number in Comments. 2 = Unchanged. 3 = Slightly Better. 4 = Moderate Improvement. 5 = Met my Goal Exercise - 30-day Assessment - Visit Date of Eval: 08/24/18 - ITD delayed due to technical issues Session #:: 13 - Stages of Change Stages of Change:: Action - Exercise Prescription Mode:: Treadmill, Airdyne, NuStep Frequency (x/week): 3 Duration:: 35 METs - Progression: 0.5-1 MET as tolerated: 5 Target Heart Rate:: 132-141 Max HR 112 - Hypertension Resting Blood Pressure:: 98/58 Peak Exercise Blood Pressure:: 112/62 - Intervention Home Exercise/Activity Goal:: Sitting Time <3 hrs/day - Education Goals:: Warm-up, RPE AL Scale, S/S, Safe Exercise, Self-Monitoring - Exercise Program Goals Exercise Program Goals: Aerobic Activity >30 min, B/P <130/80 Nutrition - 30-Day Assessment - Program Goals Nutrition Program Goals: LDL <70. Total Cholesterol <200. HDL >45. Triglycerides <150. HgbA1C <7%. BMI <25 - Visit Date of Eval: 08/24/18 - Stages of Change Stages of Change:: Action - Weight Management Weight:: 64.637 kg - Intervention Referral to dietitian:: No Referral to Diabetic Clinic:: No Will attend diet classes:: Yes - Education Attended class for:: Signs & symptoms of hypoglycemia, Signs & symptoms of hyperglycemia, Relate diabetes to coronary artery disease Tobacco - 30-Day Assessment - Program Goals Tobacco Program Goals: Complete smoking cessation. Attend education classes. Improve Knowledge Test score - Stage of Change Stages of Change:: Action - Learning Barriers Learning Barriers: Participates in education - Family Support Do you have family support?: Yes - Tobacco Use Tobacco Use: Non-smoker - Intervention Smoking Cessation Referral:: No Individual Education/Counseling:: No Education Schedule Given:: Yes - Education Attended class for:: Tobacco triggers, Coronary artery disease, Risk factors, Sexuality, Medical compliance, Cardiac A&P, Angina signs & symptoms Psychosocial - Initial Assess - Target Goals Target Goals: Assess presence or absence of depression. Using a valid screening tool, maximizes coping skills. Positive support system - Psychosocial Test Tool Used:: HANDS Depression Questionnaire - Assistive Devices Fall Risk Assessed:: Yes Psychosocial - 30-Day Assess - Target Goals Target Goals: Assess presence or absence of depression. Using a valid screening tool, maximizes coping skills. Positive support system - Stages of Change Stages of Change:: Action - Psychosocial Test Tool Used:: HANDS Depression Questionnaire - Intervention PS - Interventions: Yes Attend Stress Management Classes, Yes Uses Stress Management Skills, No Referral to Mental Health, No Referral to [facility] Case Management, No Referral to Physician - Education Attended classes for:: Coping techniques, Signs & symptoms of depression, Stress management, Relaxation techniques - Assistive Devices Assistive Devices:: None Fall Risk Assessed:: Yes Patient Health Questionnaire 30-Day Re-eval Assessment 1. Little interest or pleasure in doing things: Not at all 2. Feeling down, depressed, or hopeless: Not at all 3. Trouble falling or staying asleep, or sleeping too much: Not at all 4. Feeling tired or having little energy: Not at all 5. Poor appetite or overeating: Not at all 6. Feeling bad about yourself -- or that you are a failure or have let yourself or your family down: Not at all 7. Trouble concentrating on things, such as reading the newspaper or watching television: Not at all 8. Moving or speaking so slowly that other people could have noticed. Or the opposite - being so fidgety or restless that you have been moving around a lot more than usual: Not at all 9. Thoughts that you would be better off , or of hurting yourself in some way: Not at all How difficult have these problems made it for you to do your work, take care of things at home, or get along with other people?: Not difficult at all Total Score: 0 Self-Efficacy 30-Day Re-eval Assessment We would like to know how confident you are in doing certain activities. Please select your confidence level for:: Select your confidence level for the following using the scale 1-10 where 1 is not at all confident and 10 is totally confident. Your score is the average of all 6 responses. Fatigue: How confident are you that you can keep the fatigue caused by your disease from interfering with the things you want to do? Select Number: 6 Physical Discomfort or Pain: How confident are you that you can keep the physical discomfort or pain of your disease from interfering with the things you want to do? Select Number: 6 Emotional Distress: How confident are you that you can keep the emotional distress caused by your disease from interfering with the things you want to do? Select Number: 9 Other Symptoms or Health Problems: How confident are you that you can keep other symptoms or health problems from interfering with the things you want to do? Select Number: 8 Different Tasks and Activities: How confident are you that you can do the different tasks and activities needed to manage your health condition so as to reduce your need to see a doctor? Select Number: 8 Medication: How confident are you that you can do things other than just taking medication to reduce how much your illness affects your everyday life? Select Number: 10 Total Score:: 7
[2018-08-24 10:17] VITALS: BP 112/62; BP 98/58
== END 2018-09-14 23:59 ==
LOC: CR 08:00
PROVIDERS: Family Provider Internal Medicine; PCP Internal Medicine; Referring Provider Internal Medicine Cardiovascular Disease; Visit Provider Internal Medicine Cardiovascular Disease
DX: I25.118 Atherosclerotic heart disease of native coronary artery with other forms of angina pectoris (principal); Z95.1 Presence of aortocoronary bypass graft; I47.2 Ventricular tachycardia; I47.1 Supraventricular tachycardia
CPT/HCPCS: 93798

== ENCOUNTER 2018-10-14 08:00 | Outpatient (RCR) | payer BC, SELFPAY ==
[2018-08-26 06:31] VITALS: BMI 22.4
[2018-09-15 01:15] VITALS: BP 112/62; BP 98/58
--- NOTE | 2018-09-16 08:36 | PCM.CR.ITP ---
General Information - General Information Admitting Diagnosis: CABG - Education/Goals Cardiac Rehabilitation Goals: 1. Maintain the individual as the primary focus of care. 2. To improve the patient's quality of life. 3. Identification of cardiac risk factors and provide cardiac risk factor management. 4. Enhance the psychosocial status of the patient. 5. Reconditioning enough to allow the patient to resume customary activities. 6. Control symptoms of cardiac disease Scale for measuring improvement of personal goals: Enter appropriate number in Comments. 2 = Unchanged. 3 = Slightly Better. 4 = Moderate Improvement. 5 = Met my Goal Exercise - 60-Day Assessment - Visit Date of Eval: 09/16/18 - Stages of Change Stages of Change:: Action - Exercise Prescription Mode:: Treadmill, Airdyne, NuStep Frequency (x/week): 3 Duration:: 35 METs: 7.5 Target Heart Rate:: 132-141 Max HR 133 - Hypertension Resting Blood Pressure:: 92/60 Peak Exercise Blood Pressure:: 106/60 - Intervention Home Exercise/Activity Goal:: Sitting Time <3 hrs/day - Education Goals:: Warm-up, RPE AL Scale, S/S, Safe Exercise, Self-Monitoring - Exercise Program Goals Exercise Program Goals: Aerobic Activity >30 min, B/P <130/80 Nutrition - 60-Day Assessment - Program Goals Nutrition Program Goals: LDL <70. Total Cholesterol <200. HDL >45. Triglycerides <150. HgbA1C <7%. BMI <25 - Visit Date of Eval: 09/16/18 - Stages of Change Stages of Change:: Action - Weight Management Weight:: 64.41 kg - Intervention Referral to dietitian:: No Referral to Diabetic Clinic:: No Will attend diet classes:: Yes - Education Attended class for:: Signs & symptoms of hypoglycemia, Signs & symptoms of hyperglycemia, Relate diabetes to coronary artery disease, Healthy eating Tobacco - 60-Day Assessment - Program Goals Tobacco Program Goals: Complete smoking cessation. Attend education classes. Improve Knowledge Test score - Stage of Change Stages of Change:: Action - Family Support Do you have family support?: Yes - Tobacco Use Tobacco Use: Non-smoker - Intervention Smoking Cessation Referral:: No Individual Education/Counseling:: No Education Schedule Given:: Yes - Education Attended class for:: Tobacco triggers, Coronary artery disease, Risk factors, Sexuality, Medical compliance, Cardiac A&P, Angina signs & symptoms Psychosocial - Initial Assess - Target Goals Target Goals: Assess presence or absence of depression. Using a valid screening tool, maximizes coping skills. Positive support system - Psychosocial Test Tool Used:: HANDS Depression Questionnaire - Assistive Devices Fall Risk Assessed:: Yes Psychosocial - 60-Day Assess - Target Goals Target Goals: Assess presence or absence of depression. Using a valid screening tool, maximizes coping skills. Positive support system - Stages of Change Stages of Change:: Action - Psychosocial Test Tool Used:: HANDS Depression Questionnaire - Intervention PS - Interventions: Yes Attend Stress Management Classes, Yes Uses Stress Management Skills, No Referral to Mental Health, No Referral to [facility] Case Management, No Referral to Physician - Assistive Devices Assistive Devices:: None Fall Risk Assessed:: Yes Patient Health Questionnaire 60-Day Re-eval Assessment 1. Little interest or pleasure in doing things: Not at all 2. Feeling down, depressed, or hopeless: Not at all 3. Trouble falling or staying asleep, or sleeping too much: Not at all 4. Feeling tired or having little energy: Not at all 5. Poor appetite or overeating: Not at all 6. Feeling bad about yourself -- or that you are a failure or have let yourself or your family down: Not at all 7. Trouble concentrating on things, such as reading the newspaper or watching television: Not at all 8. Moving or speaking so slowly that other people could have noticed. Or the opposite - being so fidgety or restless that you have been moving around a lot more than usual: Not at all 9. Thoughts that you would be better off , or of hurting yourself in some way: Not at all How difficult have these problems made it for you to do your work, take care of things at home, or get along with other people?: Not difficult at all Total Score: 0 Self-Efficacy 60-Day Re-eval Assessment We would like to know how confident you are in doing certain activities. Please select your confidence level for:: Select your confidence level for the following using the scale 1-10 where 1 is not at all confident and 10 is totally confident. Your score is the average of all 6 responses. Fatigue: How confident are you that you can keep the fatigue caused by your disease from interfering with the things you want to do? Select Number: 6 Physical Discomfort or Pain: How confident are you that you can keep the physical discomfort or pain of your disease from interfering with the things you want to do? Select Number: 6 Emotional Distress: How confident are you that you can keep the emotional distress caused by your disease from interfering with the things you want to do? Select Number: 9 Other Symptoms or Health Problems: How confident are you that you can keep other symptoms or health problems from interfering with the things you want to do? Select Number: 8 Different Tasks and Activities: How confident are you that you can do the different tasks and activities needed to manage your health condition so as to reduce your need to see a doctor? Select Number: 8 Medication: How confident are you that you can do things other than just taking medication to reduce how much your illness affects your everyday life? Select Number: 10 Total Score:: 7
[2018-09-16 08:42] VITALS: BP 106/60; BP 92/60
== END 2018-10-15 23:59 ==
LOC: CR 08:00
PROVIDERS: Family Provider Internal Medicine; PCP Internal Medicine; Referring Provider Internal Medicine Cardiovascular Disease; Visit Provider Internal Medicine Cardiovascular Disease
DX: I25.118 Atherosclerotic heart disease of native coronary artery with other forms of angina pectoris (principal); Z95.1 Presence of aortocoronary bypass graft; I47.2 Ventricular tachycardia; I47.1 Supraventricular tachycardia
CPT/HCPCS: 93798

== ENCOUNTER 2018-10-16 06:48 | Outpatient (RCR) | payer BC, SELFPAY ==
[2018-08-26 06:31] VITALS: BMI 22.4
[2018-10-16 01:22] VITALS: BP 106/60; BP 92/60
--- NOTE | 2018-10-19 08:51 | PCM.CR.ITP ---
General Information - General Information Admitting Diagnosis: CABG - Education/Goals Cardiac Rehabilitation Goals: 1. Maintain the individual as the primary focus of care. 2. To improve the patient's quality of life. 3. Identification of cardiac risk factors and provide cardiac risk factor management. 4. Enhance the psychosocial status of the patient. 5. Reconditioning enough to allow the patient to resume customary activities. 6. Control symptoms of cardiac disease Scale for measuring improvement of personal goals: Enter appropriate number in Comments. 2 = Unchanged. 3 = Slightly Better. 4 = Moderate Improvement. 5 = Met my Goal Exercise - Final/Discharge - Visit Date of Eval: 10/19/18 - Discharge ITP - Stages of Change Stages of Change:: Action - Exercise Prescription Mode:: Treadmill, Airdyne, NuStep Frequency (x/week): 3 Duration:: 30-45 METs: 8.1 Target Heart Rate:: 132-141 Max HR 120 - Hypertension Resting Blood Pressure:: 98/58 Peak Exercise Blood Pressure:: 124/60 - Intervention Home Exercise/Activity Goal:: Sitting Time <3 hrs/day - Education Goal Progress: Goal Met - Exercise Program Goals Exercise Program Goals: Aerobic Activity >30 min, B/P <130/80 Nutrition - Final Assessment - Program Goals Nutrition Program Goals: LDL <70. Total Cholesterol <200. HDL >45. Triglycerides <150. HgbA1C <7%. BMI <25 - Visit Date of Eval: 10/19/18 - Stages of Change Stages of Change:: Action - Diabetes Diabetes:: No - Weight Management Weight:: 141.5 kg - Intervention Referral to dietitian:: No Referral to Diabetic Clinic:: No Will attend diet classes:: Yes - Education Education Goal Reached?: Yes Tobacco - Final Assessment - Program Goals Tobacco Program Goals: Complete smoking cessation. Attend education classes. Improve Knowledge Test score - Stage of Change Stages of Change:: Action - Family Support Do you have family support?: Yes - Tobacco Use Tobacco Use: Non-smoker - Intervention Smoking Cessation Referral:: No Individual Education/Counseling:: No Education Schedule Given:: Yes - Education Education Goal Reached?: Yes Psychosocial - Initial Assess - Target Goals Target Goals: Assess presence or absence of depression. Using a valid screening tool, maximizes coping skills. Positive support system - Psychosocial Test Tool Used:: HANDS Depression Questionnaire - Assistive Devices Fall Risk Assessed:: Yes Psychosocial - Final Assessmen - Target Goals Target Goals: Assess presence or absence of depression. Using a valid screening tool, maximizes coping skills. Positive support system - Stages of Change Stages of Change:: Action - Psychosocial Test Tool Used:: HANDS Depression Questionnaire - Intervention PS - Interventions: Yes Attend Stress Management Classes, Yes Uses Stress Management Skills, No Referral to Mental Health, No Referral to [facility] Case Management, No Referral to Physician - Education Education Goal Reached?: Yes - Assistive Devices Assistive Devices:: None Fall Risk Assessed:: Yes Patient Health Questionnaire Discharge Assessment 1. Little interest or pleasure in doing things: Not at all 2. Feeling down, depressed, or hopeless: Not at all 3. Trouble falling or staying asleep, or sleeping too much: Not at all 4. Feeling tired or having little energy: Not at all 5. Poor appetite or overeating: Not at all 6. Feeling bad about yourself -- or that you are a failure or have let yourself or your family down: Not at all 7. Trouble concentrating on things, such as reading the newspaper or watching television: Not at all 8. Moving or speaking so slowly that other people could have noticed. Or the opposite - being so fidgety or restless that you have been moving around a lot more than usual: Not at all 9. Thoughts that you would be better off , or of hurting yourself in some way: Not at all How difficult have these problems made it for you to do your work, take care of things at home, or get along with other people?: Not difficult at all Total Score: 0 BRANDON-Q SV Test - Statements CAD is a disease of the arteries in the heart: False Examples of risk factors for heart disease: True Angina is chest pain or discomfort: True The benefits of resistance training include: True Eating more meat and dairy products: False Anti-platelet medications such as aspirin are important: True The only effective way to manage stress: True An exercise warm-up slowly increases heart rate: True Prepared, processed foods usually have high sodium: True Depression is common after a heart attack: True The statin medications lower cholesterol: True To control blood pressure, lower the amount of sodium: True If someone gets chest discomfort during walking: False Transfats are partially hydrogenated vegetable oils: True Sleep apnea that is not treated increases the risk: False To control cholesterol, one should become a vegetarian: False Someone knows if he/she is exercising at the right level: True Diabetes cannot be prevented with exercise & health eating: False Stress is a large risk for heart attack: True A diet that can help lower blood pressure is rich in: True - Total Score Total Correct Responses: 19 Self-Efficacy Discharge Assessment We would like to know how confident you are in doing certain activities. Please select your confidence level for:: Select your confidence level for the following using the scale 1-10 where 1 is not at all confident and 10 is totally confident. Your score is the average of all 6 responses. Fatigue: How confident are you that you can keep the fatigue caused by your disease from interfering with the things you want to do? Select Number: 10 Physical Discomfort or Pain: How confident are you that you can keep the physical discomfort or pain of your disease from interfering with the things you want to do? Select Number: 9 Emotional Distress: How confident are you that you can keep the emotional distress caused by your disease from interfering with the things you want to do? Select Number: 9 Other Symptoms or Health Problems: How confident are you that you can keep other symptoms or health problems from interfering with the things you want to do? Select Number: 8 Different Tasks and Activities: How confident are you that you can do the different tasks and activities needed to manage your health condition so as to reduce your need to see a doctor? Select Number: 10 Medication: How confident are you that you can do things other than just taking medication to reduce how much your illness affects your everyday life? Select Number: 9 Total Score:: 9 Nutrition Survey - Nutrition Survey Instructions Scoring Instructions: Scoring is as follows: Yes = 1 points. No = 0 point. Patient score that is >/=12 is considered to be at potential nutritional risk and could benefit from a referral to a registered dietitian. - Nutrition Survey Discharge Have you lost >10 lbs over the past 2 months without trying?: No Are you following a special diet at home for diabetes, low fat, or low salt?: Yes Are you interested in meeting with a dietitian for help understanding your diet?: No Do you eat less than 3 meals a day?: No Do you eat fatty meats (oquendo, sausage, ribs, etc), fried foods, desserts, large amounts of salad dressings, margarine, butter, or cheese most days?: Yes Do you have food allergies? [Enter types in comment field]: No Do you eat in restaurants more than 3 times a week?: No Do you season food with salt, seasoning salt, or garlic salt?: No Do you used canned, boxed, frozen meals, or soups, seasoning packets?: No Total Score:: 2
[2018-10-19 08:57] VITALS: BP 124/60; BP 98/58
== END 2018-11-12 23:59 ==
LOC: CR 06:48
PROVIDERS: Family Provider Internal Medicine; PCP Internal Medicine; Referring Provider Internal Medicine Cardiovascular Disease; Visit Provider Internal Medicine Cardiovascular Disease
DX: I25.118 Atherosclerotic heart disease of native coronary artery with other forms of angina pectoris (principal); Z95.1 Presence of aortocoronary bypass graft; I47.2 Ventricular tachycardia; I47.1 Supraventricular tachycardia
CPT/HCPCS: 93798

== ENCOUNTER → 2018-12-25 08:24 | Outpatient (CLI) | payer BC, SELFPAY ==
[2018-08-26 06:31] VITALS: BMI 22.4
[2018-12-25 10:05] LABS: AST(SGOT) 22 U/L (15-37); Alanine Aminotransfer ALT/SGPT 27 U/L (13-56); Albumin, Serum 3.6 g/dL (3.2-5.0); Alkaline Phosphatase 100 U/L (45-117); Bilirubin, Direct 0.14 mg/dL (0.00-0.30); Cholesterol 128 mg/dL (200); Globulin 3.7 g/dL (2.2-4.2); High Density Lipoprotein 53 mg/dL; Protein, Total 7.3 g/dL (6.4-8.2); Triglycerides 76 mg/dL; Very Low Density Lipoprotein 15 mg/dL (5-40)
== END ==
PROVIDERS: Family Provider Internal Medicine; PCP Internal Medicine; Referring Provider Nurse Practitioner Family; Visit Provider Nurse Practitioner Family
DX: E78.5 Hyperlipidemia, unspecified (principal)
CPT/HCPCS: 36415; 80061; 80076

== ENCOUNTER → 2019-01-21 07:34 | Outpatient (CLI) | payer BC, SELFPAY ==
[2018-08-26 06:31] VITALS: BMI 22.4
[2019-01-07 14:38] VITALS: BMI 21.2
--- NOTE | 2019-01-21 11:09 | PFT ---
INTRODUCTION: The patient is a 53-year-old female that presents for pulmonary function studies secondary to a diagnosis of dyspnea. Respiratory therapy reports good patient effort. Bronchodilators were used during testing. INTERPRETATION: Forced expiration spirometry demonstrates the presence of a moderate large airways obstructive ventilatory defect. There was no significant response to aerosolized bronchodilators. Spirograms are of good quality and do not plateau indicating slow emptying of the lungs. Body plethysmography was performed and reveals lung volumes to be within normal limits. Diffusing capacity by single breath CO is within normal limits at 82% of predicted. IMPRESSION: Irreversible moderate large airways obstructive ventilatory defect.
== END ==
PROVIDERS: Family Provider Internal Medicine; PCP Internal Medicine; Referring Provider Internal Medicine Critical Care Medicine; Visit Provider Internal Medicine Critical Care Medicine
DX: J98.4 Other disorders of lung (principal)
CPT/HCPCS: 94060; 94726; 94729

== ENCOUNTER → 2019-07-06 07:53 | Outpatient (CLI) | payer BC, SELFPAY ==
[2019-03-25 07:53] VITALS: BMI 21.6
[2019-07-06 09:35] LABS: AST(SGOT) 23 U/L (15-37); Alanine Aminotransfer ALT/SGPT 34 U/L (13-56); Albumin, Serum 3.6 g/dL (3.2-5.0); Alkaline Phosphatase 87 U/L (45-117); Bilirubin, Direct 0.12 mg/dL (0.00-0.30); Cholesterol 120 mg/dL (200); Globulin 3.9 g/dL (2.2-4.2); High Density Lipoprotein 51 mg/dL; Protein, Total 7.5 g/dL (6.4-8.2); Triglycerides 120 mg/dL; Very Low Density Lipoprotein 24 mg/dL (5-40)
== END ==
PROVIDERS: Family Provider Internal Medicine; PCP Internal Medicine; Referring Provider Internal Medicine Cardiovascular Disease; Visit Provider Internal Medicine Cardiovascular Disease
DX: I25.118 Atherosclerotic heart disease of native coronary artery with other forms of angina pectoris (principal)
CPT/HCPCS: 36415; 80061; 80076

== ENCOUNTER → 2019-07-23 10:35 | Outpatient (CLI) | payer BC, SELFPAY ==
[2019-07-15 08:54] VITALS: BMI 21.1
--- NOTE | 2019-07-23 10:38 | ART_ITS ---
Reason For Study: Claudication Procedure A bilateral lower extremity continuous wave Doppler with analog waveform analysis,segmental pressures,and ankle brachial indexes with exercise. Left Segmental Pressures Left brachial= 122mmHg. Left posterior tibial artery = 129mmHg. Left dorsalis pedis artery = 117mmHg. Left digit = 75 mmHg. The left dorsalis pedis waveforms are biphasic. The left posterior tibial artery waveforms are biphasic. Right Segmental Pressures Right brachial= 124mmHg. Right posterior tibial artery = 125mmHg. Right dorsalis pedis artery = 114mmHg. Right digit = 76 mmHg. The right dorsalis pedis waveforms are triphasic. The right posterior tibial artery waveforms are triphasic. Indices The right ankle brachial index by the dorsalis pedis is 0.92. The right ankle brachial index by the posterior tibial artery is 1.01. The right digital-brachial index is 0.61. The right post exercise ankle brachial index is 1.19. The left ankle brachial index by the dorsalis pedis is 0.94. The left ankle brachial index by the posterior tibial artery is 1.04. The left digital-brachial index is 0.60. The left post exercise ankle brachial index is 1.08. Interpretation Summary Normal bilateral posterior tibial ankle brachial indices at rest. Minimal disease bilateral dorsalis pedis ankle brachial indices at rest. Abnormal bilateral digital brachial indices Normal response to exercise bilateral PT ankle brachial indices. Ordering Physician: Zak Maxwell Referring Physician: Purvi Jansen M.D. Performed By: Debby Martinez RVT
== END ==
PROVIDERS: Family Provider Internal Medicine; PCP Internal Medicine; Referring Provider Internal Medicine Cardiovascular Disease; Visit Provider Internal Medicine Cardiovascular Disease
DX: I25.118 Atherosclerotic heart disease of native coronary artery with other forms of angina pectoris (principal); I73.9 Peripheral vascular disease, unspecified; Z95.1 Presence of aortocoronary bypass graft
CPT/HCPCS: 93924

== ENCOUNTER → 2020-08-07 09:04 | Outpatient (CLI) | payer BC, SELFPAY ==
[2020-08-03 11:18] VITALS: BMI 21.8
== END ==
PROVIDERS: PCP Internal Medicine; Referring Provider Internal Medicine Cardiovascular Disease; Visit Provider Internal Medicine Cardiovascular Disease
DX: R00.2 Palpitations (principal); I25.118 Atherosclerotic heart disease of native coronary artery with other forms of angina pectoris; E78.5 Hyperlipidemia, unspecified; Z95.1 Presence of aortocoronary bypass graft
CPT/HCPCS: 93225; 93226

== ENCOUNTER → 2020-09-20 07:02 | Outpatient (CLI) | payer BC, SELFPAY ==
[2020-08-03 11:18] VITALS: BMI 21.8
[2020-09-20 08:46] LABS: AST(SGOT) 13 U/L (15-37); Alanine Aminotransfer ALT/SGPT 21 U/L (13-56); Albumin, Serum 3.5 g/dL (3.2-5.0); Alkaline Phosphatase 93 U/L (45-117); Bilirubin, Direct 0.11 mg/dL (0.00-0.30); Cholesterol 153 mg/dL (200); High Density Lipoprotein 57 mg/dL; Protein, Total 7.5 g/dL (6.4-8.2); Triglycerides 109 mg/dL; Very Low Density Lipoprotein 22 mg/dL (5-40)
== END ==
PROVIDERS: PCP Internal Medicine; Referring Provider Internal Medicine Cardiovascular Disease; Visit Provider Internal Medicine Cardiovascular Disease
DX: E78.5 Hyperlipidemia, unspecified (principal); I25.118 Atherosclerotic heart disease of native coronary artery with other forms of angina pectoris
CPT/HCPCS: 36415; 80061; 80076

== ENCOUNTER → 2021-03-30 07:28 | Outpatient (CLI) | payer BC, SELFPAY ==
[2021-01-26 11:33] VITALS: BMI 21.8
[2021-03-30 08:14] LABS: AST(SGOT) 17 U/L (15-37); Alanine Aminotransfer ALT/SGPT 22 U/L (13-56); Albumin, Serum 3.6 g/dL (3.2-5.0); Alkaline Phosphatase 89 U/L (45-117); Bilirubin, Direct 0.11 mg/dL (0.00-0.30); Cholesterol 151 mg/dL (200); High Density Lipoprotein 55 mg/dL; Protein, Total 7.6 g/dL (6.4-8.2); Triglycerides 154 mg/dL; Very Low Density Lipoprotein 31 mg/dL (5-40)
== END ==
LOC: LAB 07:29
PROVIDERS: PCP Internal Medicine; Referring Provider Internal Medicine Cardiovascular Disease; Visit Provider Internal Medicine Cardiovascular Disease
DX: E78.00 Pure hypercholesterolemia, unspecified (principal)
CPT/HCPCS: 36415; 80061; 80076

== ENCOUNTER → 2021-06-27 06:29 | Outpatient (CLI) | payer BC, SELFPAY ==
[2021-06-27 07:42] LABS: AST(SGOT) 18 U/L (15-37); Alanine Aminotransfer ALT/SGPT 26 U/L (13-56); Albumin, Serum 3.7 g/dL (3.2-5.0); Alkaline Phosphatase 84 U/L (45-117); Bilirubin, Direct 0.13 mg/dL (0.00-0.30); Cholesterol 166 mg/dL (200); Globulin 4.2 g/dL (2.2-4.2); High Density Lipoprotein 62 mg/dL; Protein, Total 7.9 g/dL (6.4-8.2); Triglycerides 104 mg/dL; Very Low Density Lipoprotein 21 mg/dL (5-40)
== END ==
PROVIDERS: PCP Family Medicine; Referring Provider Internal Medicine Cardiovascular Disease; Visit Provider Internal Medicine Cardiovascular Disease
DX: E78.00 Pure hypercholesterolemia, unspecified (principal)
CPT/HCPCS: 36415; 80061; 80076

== ENCOUNTER → 2022-03-14 | Outpatient (CLI) | payer BC, SELFPAY ==
[2022-03-14 08:07] LABS: AST(SGOT) 16 U/L (15-37); Alanine Aminotransfer ALT/SGPT 28 U/L (13-56); Albumin, Serum 3.5 g/dL (3.2-5.0); Alkaline Phosphatase 97 U/L (45-117); Bilirubin, Direct 0.09 mg/dL (0.00-0.30); Cholesterol 162 mg/dL (200); High Density Lipoprotein 49 mg/dL; Protein, Total 7.5 g/dL (6.4-8.2); Triglycerides 142 mg/dL; Very Low Density Lipoprotein 28 mg/dL (5-40)
== END | disposition home or self-care (01) ==
PROVIDERS: PCP Family Medicine; Visit Provider Nurse Practitioner Family
DX: E78.00 Pure hypercholesterolemia, unspecified (principal)
CPT/HCPCS: 36415; 80061; 80076

== ENCOUNTER → 2022-04-22 | Outpatient (CLI) | payer BC, SELFPAY ==
--- NOTE | 2022-04-22 17:33 | STRESSREP ---
Stress Test Report Date: 04-22-2022 Procedure: Exercise tolerance test/imaging study Indications: PAT, NSVT, CAD, CABG, hyperlipidemia Consent: Per the patient Procedure: The patient exercised on a Rohan protocol for 7 minutes completing Stage II and 1 minute of Stage III achieving a peak heart rate of 166 bpm (102% predicted maximal heart rate) with a peak blood pressure 150/60 mmHg and a peak MET capacity of 9 METs. The baseline ECG demonstrated sinus bradycardia. The peak exercise ECG demonstrated somatic/motion artifact with no obvious ECG changes. There was a rare PVC and an isolated ventricular couplet during exercise and a rare PVC during recovery. The functional capacity was considered good. There was no complaint of chest discomfort during exercise or recovery. The examination was discontinued secondary to dyspnea. Impression: 1. Technically adequate (percent predicted maximal heart rate greater than 85%) exercise tolerance test 2. Peak exercise ECG with somatic/motion artifact with no obvious ECG changes 3. There was a rare PVC and an isolated ventricular couplet during exercise and a rare PVC during recovery 4. Nuclear images pending Myocardial perfusion imaging study: Technique: The patient was injected with 11.3 mCi of technetium 99m Cardiolite and subsequently rest SPECT Cardiolite nuclear imaging was obtained in the horizontal long, vertical long, and short axis views. The patient exercised on a Rohan protocol for 7 minutes completing Stage II and 1 minute of Stage III achieving a peak heart rate of 166 bpm (102% predicted maximal heart rate) with a peak blood pressure 150/60 mmHg and a peak MET capacity of 9 METs. The patient was injected with 34.1 mCi of technetium 99m Cardiolite and subsequently stress SPECT Cardiolite nuclear imaging was obtained in the horizontal long, vertical long, and short axis views. A gated Cardiolite study at peak stress was obtained. Interpretation: Rest and stress SPECT Cardiolite nuclear imaging status post realignment, normalization, and attenuation correction, demonstrates the appearance of relative uniform tracer uptake and myocardial perfusion appearing within normal limits. There is end systolic thickening and brightening. The gated Cardiolite study demonstrates myocardial thickening and inward wall motion. The reported LVEF is 77%. Impression: 1. Rest and stress SPECT Cardiolite nuclear imaging demonstrate relative uniform tracer uptake and myocardial perfusion appearing within normal limits. 2. The gated Cardiolite study reports an LVEF of 77%. This note was generated with [employer] software. It may contain incorrect words, spelling, and punctuation that were not noted in checking the note before signing.
== END | disposition home or self-care (01) ==
LOC: CVS 06:08
PROVIDERS: PCP Family Medicine; Visit Provider Physician Assistant Medical
DX: I25.10 Atherosclerotic heart disease of native coronary artery without angina pectoris (principal); Z95.1 Presence of aortocoronary bypass graft; E78.5 Hyperlipidemia, unspecified
CPT/HCPCS: 78452; 93017; A9500; A4216

== ENCOUNTER 2024-10-25 11:27 | Day surgery (SDC) | payer BC, SELFPAY ==
--- NOTE | 2024-10-21 15:07 | PAT.ANESEVAL ---
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 When Was Last Pacemaker Check QUESTION #4 FULL TEXT: You/Your Family Experience fever (hyperthermia) with Anesthesia Last Oral Intake Last Oral intake: Last Oral Intake NPO since Meds taken in AM with sips of water? Meds patient instructed to take am of surgery PONV PONV - secondary school principal: PONV - secondary school principal Female Yes 10/21/24 12:40 HX of Motion Sickness Yes 10/21/24 12:40 HX of N/V After Surgery Yes 10/21/24 12:40 Non-Smoker Yes 10/21/24 12:40 Duration of Surgery greater No 10/21/24 12:40 than 60 minutes Number of Risk Factors 4 10/21/24 12:40 PONV Score Severe Risk 10/21/24 12:40 Height & Weight Height & Weight: Anesthesia: Height & Weight Height 5 ft 7 in 08/23/24 14:59 Respiratory Assessment Respiratory Assessment - secondary school principal: Respiratory Tract Infection Hx - secondary school principal Hx Respiratory Tract Infection No 10/21/24 12:40 STOP Sleep Apnea STOP Sleep Apnea - secondary school principal: STOP Sleep Apnea - secondary school principal Hx Hypertension No: WITH CUSHINGS DISEASE, 10/21/24 12:40 RESOLVED Hx Sleep Apnea No 10/21/24 12:40 CPAP BIPAP Do you snore loudly (louder No 10/21/24 12:40 than talking or can be heard Do you often feel tired/ No 10/21/24 12:40 fatigued/ sleepy during daytime? Has anyone observed you stop No 10/21/24 12:40 breathing during sleep? STOP Results Negative 10/21/24 12:40 QUESTION #5 FULL TEXT : Do you snore loudly (louder than talking or can be heard through closed doors)? 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 Specify any problems Hx of Preganancy in last 3 No 10/21/24 12:40 Months Nurse Filling Out Transfusion MGRIBI 10/21/24 12:40 & Questions: Date: 10/21/24 10/21/24 12:40 Time: 12:42 10/21/24 12:40 Patient unable to answer at this time (ie. confused, unrespo /Reproduction History /Reproductive History - secondary school principal: /Reproductive Hx- secondary school principal Hx Now No 10/21/24 12:40 Gestational Age (in weeks): EDC: Hx Hx Para Hx Section SAB No 10/21/24 12:40 [facility] Medical History (Updated 10/21/24 @ 12:52 by Maggie Greer) History of renal disease Wears glasses Wears partial dentures Cancer History of vertigo History of diverticulitis PONV (postoperative nausea and vomiting) Former smoker History of Holter monitoring Cardiology follow-up encounter History of irregular heartbeat Arteriosclerotic heart disease (ASHD) Hyperlipidemia Atherosclerotic heart disease of [place] coronary artery with other forms of angina pectoris Carotid bruit Iatrogenic hypothyroidism Thyroid cancer (~2005) Atrophy of right kidney 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 History of adrenal adenoma (~2000) Ventricular tachycardia (03/19/18) Paroxysmal atrial tachycardia Shortness of breath Palpitations Home Medications ?Medication ?Instructions ?Recorded ?Last Taken ?Type aspirin 81 mg tablet,delayed 81 mg PO QDAY 03/19/18 04/14/18 History release (Adult Aspirin Regimen) coenzyme Q10 100 mg capsule 100 mg PO DAILY 08/03/20 Unknown History levothyroxine 75 mcg tablet 88 mcg PO DAILY 03/25/22 Unknown History metoprolol tartrate 25 mg tablet 12.5 mg (1/2 x 25 mg) PO BID #90 12/01/23 Unknown Rx tabs magnesium hydroxide 400 mg (170 mg 400 mg PO QDAY 08/23/24 Unknown History magnesium) chewable tablet calcium 600 mg (as 1 tab PO DAILY 10/21/24 Unknown History carbonate)-vitamin D3 5 mcg (200 unit) tablet (Calcium 600 + D(3)) Allergy/AdvReac Type Severity Reaction Status Date / Time amlodipine besylate (From AdvReac Swelling Verified 10/21/24 12:35 [facility]) Family History (Updated 08/23/24 @ 11:05 by Romelia Thomason) Mother Hypertension Hyperlipidemia Peripheral vascular disease CAD (coronary artery disease) Father COPD (chronic obstructive pulmonary disease) Lung cancer Grandmother Colon cancer Maternal, In her early 60's Surgical History (Updated 10/21/24 @ 12:52 by Maggie Greer) History of heart surgery S/P CABG x 2 (05/12/18) History of left heart catheterization (04/14/18) History of breast biopsy History of colonoscopy (~08/23/13) History of colposcopy (~2008) History of hysteroscopy (~2014) History of loop electrical excision procedure (LEEP) History of laparoscopic-assisted vaginal hysterectomy (~2015) History of thumb surgery (02/17/14) History of thyroidectomy (~2005) Hx of total adrenalectomy (~2000) Social History (Updated 08/23/24 @ 14:50 by Romelia Thomason) household members: spouse current occupational status: employed Smoking Status: Former smoker how long ago did patient quit smokin years ago, 1ppd second hand exposure: Yes alcohol intake: never caffeine: No Audit: Pertinent Findings Pertinent Findings EKG Perinent findings: April 14, 2018. Sinus bradycardia at 57 bpm with short IN. Stress test pertinent findings: April 22, 2022. Ejection fraction 77%. There is no ischemia noted. No infarct noted. Consult pertinent findings: November 27, 2023. Dr. Forbes. 1. Atherosclerotic heart disease-patient is status post ARCINIEGA to LAD and reverse SVG to the ramus. Patient currently denies any anginal symptoms. 2. Hypertension-controlled. 3. Palpitations-minimal occurrence. Denies episodes of syncope. Rate is well-controlled on low-dose metoprolol. Additional pertinent findings: Holter monitor. August 07, 2020. Normal sinus rhythm. Rare PAC. Occasional PVC. No symptoms recorded on her 24-hour diary. Recommendation Anesthesia Recommendation Anesthesia recommendation: OPTIMIZED for anesthesia
[2024-10-25] VITALS (7 sets, daily range): BP systolic 119–145; BP diastolic 60–87; PULSE 57–82; RESP 14–16; TEMP 36.3–36.7; O2SAT 98–100; BMI 21.0
--- NOTE | 2024-10-25 11:38 | PRE.ANES_ITS ---
ASA Classification* ASA Classification ASA Classification: 3 Assessment & Plan Anesthesia* Anesthesia Assessment Anesthesia Assessment: Discussed sedation and/or anesthesia options, risks, benefits, and alternatives with patient/parents/legal guardian/POA. Questions invited. The patient/parents/legal guardian/POA seems to understand and agrees to proceed with anesthesia plan. Reviewed the physical assessment, medical history, allergy history and patient home medications list prior to surgery/procedure/anesthetic and documented any changes. Performed airway and anesthesia risk assessments. Anesthesia Type Anesthesia Type: MAC Anesthesia Focused Assessment* Airway Assessment Mouth opens: >3 cm Mallampati Score: II Focused Labs Anesthesia Preop lab: CBC WBC 8.2 K/mm3 (4.4-11.0) 03/20/18 06:50 03/20/18 RBC 4.44 M/mm3 (4.2-5.4) 03/20/18 06:50 03/20/18 Hgb 13.9 g/dl (12.0-15.0) 03/20/18 06:50 03/20/18 Hct 41.6 % (37-47) 03/20/18 06:50 03/20/18 Plt Count 286 K/mm3 (150-450) 03/20/18 06:50 03/20/18 CHEMISTRY Potassium 3.9 mmol/L (3.5-5.1) 03/20/18 06:50 03/20/18 Sodium 143 mmol/L (136-145) 03/20/18 06:50 03/20/18 BUN 18 mg/dL (7-18) 03/20/18 06:50 03/20/18 Creatinine 1.18 mg/dL (0.55-1.02) H 03/20/18 06:50 Glucose 89 mg/dL (74-106) 03/20/18 06:50 03/20/18 TSH 5.65 uIU/mL (0.358-3.74) H 03/20/18 06:50 07/03/02 COAG Urine Test Negative Negative 12/21/15 08:45 12/21/15 Pre-Assessment Diagnosis/Proposed Procedure Planned Operative Procedure(s): COLONOSCOPY Anesthesia History 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 When Was Last Pacemaker Check QUESTION #4 FULL TEXT: You/Your Family Experience fever (hyperthermia) with Anesthesia Last Oral Intake Last Oral intake: Last Oral Intake NPO since Meds taken in AM with sips of water? 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 Female Yes 10/21/24 12:40 HX of Motion Sickness Yes 10/21/24 12:40 HX of N/V After Surgery Yes 10/21/24 12:40 Non-Smoker Yes 10/21/24 12:40 Duration of Surgery greater No 10/21/24 12:40 than 60 minutes Number of Risk Factors 4 10/21/24 12:40 PONV Score Severe Risk 10/21/24 12:40 Height & Weight Height & Weight: Anesthesia: Height & Weight Height 5 ft 7 in 08/23/24 14:59 Respiratory Assessment Respiratory Assessment - communications engineering technician: Respiratory Tract Infection Hx - communications engineering technician Hx Respiratory Tract Infection No 10/21/24 12:40 STOP Sleep Apnea STOP Sleep Apnea - communications engineering technician: STOP Sleep Apnea - communications engineering technician Hx Hypertension No: WITH CUSHINGS DISEASE, 10/21/24 12:40 RESOLVED Hx Sleep Apnea No 10/21/24 12:40 CPAP BIPAP Do you snore loudly (louder No 10/21/24 12:40 than talking or can be heard Do you often feel tired/ No 10/21/24 12:40 fatigued/ sleepy during daytime? Has anyone observed you stop No 10/21/24 12:40 breathing during sleep? STOP Results Negative 10/21/24 12:40 QUESTION #5 FULL TEXT : Do you snore loudly (louder than talking or can be heard through closed doors)? 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 Specify any problems Hx of Preganancy in last 3 No 10/21/24 12:40 Months Nurse Filling Out Transfusion MGRIFFITH 10/21/24 12:40 & Questions: Date: 10/21/24 10/21/24 12:40 Time: 12:42 10/21/24 12:40 Patient unable to answer at this time (ie. confused, unrespo /Reproduction History /Reproductive History - communications engineering technician: /Reproductive Hx- communications engineering technician Hx Now No 10/21/24 12:40 Gestational Age (in weeks): EDC: Hx Hx Para Hx Section SAB No 10/21/24 12:40 PFS Medical History History of renal disease Wears glasses Wears partial dentures Cancer History of vertigo History of diverticulitis PONV (postoperative nausea and vomiting) Former smoker History of Holter monitoring Cardiology follow-up encounter History of irregular heartbeat Arteriosclerotic heart disease (ASHD) Hyperlipidemia Atherosclerotic heart disease of [place] coronary artery with other forms of angina pectoris Carotid bruit Iatrogenic hypothyroidism Thyroid cancer (~2005) Atrophy of right kidney 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 History of adrenal adenoma (~2000) Ventricular tachycardia (03/19/18) Paroxysmal atrial tachycardia Shortness of breath Palpitations Home Medications ?Medication ?Instructions ?Recorded ?Last Taken ?Type aspirin 81 mg tablet,delayed 81 mg PO QDAY 03/19/18 History release (Adult Aspirin Regimen) coenzyme Q10 100 mg capsule 100 mg PO DAILY 08/03/20 U nknown History levothyroxine 75 mcg tablet 88 mcg PO DAILY 03/25/22 U nknown History metoprolol tartrate 25 mg tablet 12.5 mg (1/2 x 25 mg) PO BID #90 12/01/23 Unknown Rx tabs magnesium hydroxide 400 mg (170 mg 400 mg PO QDAY 06/08 Unknown History magnesium) chewable tablet calcium 600 mg (as 1 tab PO DAILY 10/21/24 Unkn own History carbonate)-vitamin D3 5 mcg (200 unit) tablet (Calcium 600 + D(3)) Allergy/AdvReac Type Severity Reaction Status Date / Time amlodipine besylate (From AdvReac Swelling Verified 10/21/24 12:35 [facility]) Family History Mother Hypertension Hyperlipidemia Peripheral vascular disease CAD (coronary artery disease) Father COPD (chronic obstructive pulmonary disease) Lung cancer Grandmother Colon cancer Maternal, In her early 60's Surgical History History of heart surgery S/P CABG x 2 (05/12/18) History of left heart catheterization (04/14/18) History of breast biopsy History of colonoscopy (~08/23/13) History of colposcopy (~2008) History of hysteroscopy (~2014) History of loop electrical excision procedure (LEEP) History of laparoscopic-assisted vaginal hysterectomy (~2015) History of thumb surgery (02/17/14) History of thyroidectomy (~2005) Hx of total adrenalectomy (~2000) Social History household members: spouse current occupational status: employed Smoking Status: Former smoker how long ago did patient quit smokin years ago, 1ppd second hand exposure: Yes alcohol intake: never caffeine: No Review of Systems (Anesthesia) ROS Narrative System reviewed and no additional complaints, except as documented.
--- NOTE | 2024-10-25 11:52 | PCM.HP.STD ---
[facility] - General General Date of Admission: 10/25/24 Date of Service: 10/25/24 Chief Complaint: Screening colonoscopy HPI Narrative ELSA ADAME, is a 59 F who presents here for screening colonoscopy. She had a colonoscopy approximate 11 years ago and it was normal. She not have any problems at this time. She does have a history of thyroid cancer, paroxysmal atrial tachycardia, hyperlipidemia, hypertension, total adrenalectomy because a history of adenoma and history of previous left side heart cath. [facility] Medical History History of renal disease Wears glasses Wears partial dentures Cancer History of vertigo History of diverticulitis PONV (postoperative nausea and vomiting) Former smoker History of Holter monitoring Cardiology follow-up encounter History of irregular heartbeat Arteriosclerotic heart disease (ASHD) Hyperlipidemia Atherosclerotic heart disease of [place] coronary artery with other forms of angina pectoris Carotid bruit Iatrogenic hypothyroidism Thyroid cancer (~2005) Atrophy of right kidney History of [place]'s syndrome History of renal vein thrombosis History of adrenal adenoma (~2000) Ventricular tachycardia (03/19/18) Paroxysmal atrial tachycardia Shortness of breath Palpitations Home Medications ?Medication ?Instructions ?Recorded ?Last Taken ?Type aspirin 81 mg tablet,delayed 81 mg PO QDAY 03/19/18 10/22/24 History release (Adult Aspirin Regimen) coenzyme Q10 100 mg capsule 100 mg PO DAILY 08/03/20 10/22/24 History levothyroxine 75 mcg tablet 88 mcg PO DAILY 03/25/22 10/25/24 History metoprolol tartrate 25 mg tablet 12.5 mg (1/2 x 25 mg) PO BID #90 12/01/23 10/25/24 Rx tabs magnesium hydroxide 400 mg (170 mg 400 mg PO QDAY 08/23/24 Unknown History magnesium) chewable tablet calcium 600 mg (as 1 tab PO DAILY 10/21/24 10/22/24 History carbonate)-vitamin D3 5 mcg (200 unit) tablet (Calcium 600 + D(3)) Allergy/AdvReac Type Severity Reaction Status Date / Time amlodipine besylate (From AdvReac Swelling Verified 10/25/24 11:39 Norvasc) Family History Mother Hypertension Hyperlipidemia Peripheral vascular disease CAD (coronary artery disease) Father COPD (chronic obstructive pulmonary disease) Lung cancer Grandmother Colon cancer Maternal, In her early 60's Surgical History History of heart surgery S/P CABG x 2 (05/12/18) History of left heart catheterization (04/14/18) History of breast biopsy History of colonoscopy (~08/23/13) History of colposcopy (~2008) History of hysteroscopy (~2014) History of loop electrical excision procedure (LEEP) History of laparoscopic-assisted vaginal hysterectomy (~2015) History of thumb surgery (02/17/14) History of thyroidectomy (~2005) Hx of total adrenalectomy (~2000) Social History household members: spouse current occupational status: employed Smoking Status: Former smoker how long ago did patient quit smokin years ago, 1ppd second hand exposure: Yes alcohol intake: never caffeine: No ROS Constitutional Constitutional: Denies fatigue, fever(s), poor appetite, weight gain or weight loss Gastrointestinal Gastrointestinal: Denies belching, bloating, change in bowel habits, change in stool character, chewing difficulty, coffee ground emesis, constipation, cramping, diarrhea, dyspepsia, dysphagia, early satiety, excessive flatus, fecal incontinence, heartburn, hematemesis, hematochezia, hemorrhoids, loose stools, melena, nausea, odynophagia, rectal bleeding, tenesmus, vomiting or weight changes Vital Signs Vital Signs Vital Signs: 10/25/24 11:40 10/25/24 11:40 Temperature 98.0 F Temperature Source Temporal Pulse Rate 78 Respiratory Rate 14 Respiratory Pattern Normal Blood Pressure 145/87 H Blood Pressure Mean 106 Blood Pressure Source Monitor Blood Pressure Position Semi-Fowlers Blood Pressure Location Left Arm Pulse Ox 98 Oxygen Delivery Method Room Air Weight Weight: 134 lb 7.712 oz Body Mass Index (BMI) 21.0 Physical Exam Const alert, oriented x3, no apparent distress and healthy appearing General Appearance: cooperative GI normal to inspection, nondistended, normoactive bowel sounds, soft to palpation, non-tender and non-distended Percussion: normal to percussion Rectal Exam: deferred Assessment & Plan Assessment/Plan (1) Encounter for screening for malignant neoplasm of colon: PLAN: Chief Complaint: anemia Details: DAMARIS BALDWIN, is a 61 F who presents to the office today for establishment with [facility]. Pt was recently admitted to [facility] [id number] after being diagnosed with PNA and an [place]. She underwent cardiac catheterization during her stay. She was also found to be anemic with a hemoglobin as low as 7.9. She has never had this issue before and gets regular blood work on biologic for RA. Stool tests were negative for blood. She has not had any visible blood in her stool. She denies abdominal pain, n/v, heartburn, constipation, diarrhea or melena. Her last colonoscopy was in 2014 and she has never had an upper scope. Hemoglobin from 08.11.24 was 11.7. She was referred to us for further evaluation. Affect: normal affect Assessment and Plan Assessment and Plan (1) Anemia: Status: Acute Plan: This is a 61 yo female pt here today for anemia. Pt was recently in the hospital at [facility] for PNA and [place]. At that time she was found to be anemic with a Hgb as low as 7.9, MCV 79.1, iron 11, TIBC 163, ferritin 290. Since then her hemoglobin has increased to 11.7. Her last colonoscopy was in 2014. She will undergo upper and lower scope to rule out bleeding in the GI tract. She is agreeable to this plan. Cardiac clearance will be obtained prior to procedure. She has no obvious signs or symptoms of bleeding at this time. -Colonoscopy -EGD
--- NOTE | 2024-10-25 13:27 | OP.CCLET_ITS ---
10/25/2024 Dawson Schneider Re : Colonoscopy procedure for Giorgio Adam [place] This procedure was performed on Friday, October 25, 2024. My impressions and recommendations are as follows: Impressions : - Diverticulosis in the recto-sigmoid colon and in the sigmoid colon. - The examination was otherwise normal on direct and retroflexion views. - No specimens collected. Recommendations : - Discharge patient to home. - Resume previous diet. - Repeat colonoscopy in 10 years for screening purposes. - Continue present medications. My findings are described in the full procedure note, which is enclosed. If I can be of further assistance, please feel free to contact me at . Sincerely, Jj Jon, 10/25/2024 1:26:24 PM This report has been signed electronically.
--- NOTE | 2024-10-25 13:27 | OP.COLON_ITS ---
Patient Name: Giorgio Adam Procedure Date: 10/25/2024 12:57 PM Date of : 1965 Age: 59 Procedure: Colonoscopy Indications: Screening for colorectal malignant neoplasm Providers: Jj Jon DO Referring MD: Dawson Schneider Medicines: Monitored Anesthesia Care Patient Profile: This is a 59 year old female. Refer to note in patient chart for documentation of history and physical. Last Colonoscopy: more than 10 years ago. Complications: No immediate complications. Procedure: Pre-Anesthesia Assessment: - Prior to the procedure, a History and Physical was performed, and patient medications and allergies were reviewed. The patient is competent. The risks and benefits of the procedure and the sedation options and risks were discussed with the patient. All questions were answered and informed consent was obtained. Patient identification and proposed procedure were verified by the physician in the pre-procedure area. Mental Status Examination: alert and oriented. Airway Examination: normal oropharyngeal airway and neck mobility. Respiratory Examination: clear to auscultation. CV Examination: normal. Prophylactic Antibiotics: The patient does not require prophylactic antibiotics. Prior Anticoagulants: The patient has taken no anticoagulant or antiplatelet agents except for NSAID medication. ASA Grade Assessment: II - A patient with mild systemic disease. After reviewing the risks and benefits, the patient was deemed in satisfactory condition to undergo the procedure. The anesthesia plan was to use monitored anesthesia care (MAC). Immediately prior to administration of medications, the patient was re-assessed for adequacy to receive sedatives. The heart rate, respiratory rate, oxygen saturations, blood pressure, adequacy of pulmonary ventilation, and response to care were monitored throughout the procedure. The physical status of the patient was re-assessed after the procedure. After I obtained informed consent, the scope was passed under direct vision. Throughout the procedure, the patient's blood pressure, pulse, and oxygen saturations were monitored continuously. The Colonoscope was introduced through the anus and advanced to the cecum, identified by appendiceal orifice and ileocecal valve. The colonoscopy was performed without difficulty. The patient tolerated the procedure well. The quality of the bowel preparation was adequate. The terminal ileum, ileocecal valve, appendiceal orifice, and rectum were photographed. Scope In: 1:08:47 PM Scope Withdrawal Time 0 hours 6 minutes 10 seconds Scope Out: 1:23:08 PM Total Procedure Duration Time 0 hours 14 minutes 21 seconds Findings: The perianal and digital rectal examinations were normal. Multiple small and large-mouthed diverticula were found in the recto-sigmoid colon and sigmoid colon. The exam was otherwise without abnormality on direct and retroflexion views. Impression: - Diverticulosis in the recto-sigmoid colon and in the sigmoid colon. - The examination was otherwise normal on direct and retroflexion views. - No specimens collected. Recommendation: - Discharge patient to home. - Resume previous diet. - Repeat colonoscopy in 10 years for screening purposes. - Continue present medications. Procedure Code(s): --- Professional --- G0121, Colorectal cancer screening; colonoscopy on individual not meeting criteria for high risk CPT copyright 2021 [employer]. All rights reserved. The codes documented in this report are preliminary and upon thread grinder review may be revised to meet current compliance requirements. Jj Jon DO 10/25/2024 1:26:24 PM This report has been signed electronically. Number of Addenda: 0 Note Initiated On: 10/25/2024 12:57 PM
--- NOTE | 2024-10-25 13:32 | PCM.POST.ANE ---
Anesthesia: Postop Eval I Current Vital Signs Temperature: 97.4 F Pulse Rate: 76 Blood Pressure: 119/65 Respiratory Rate: 16 Pulse Ox: 100 Oxygen Delivery Method: Room Air Assessment Airway patent: Yes Spontaneous unlabored respirations: Yes Mental status: Awake and Calm nausea: No Vomiting: No Anesthesia Complication: No Fluid Hydration Crystalloid volume administer (ml): 40 Total IV fluid infused: 40 Progress Note Anesthesia document: Postop Eval 1 completed: Yes
--- NOTE | 2024-10-25 13:37 | PCM.POSTANE2 ---
Anesthesia Postop Eval I Sum Postop Eval Completion status Anesthesia document: Postop Eval 1 completed: Yes Anesthesia Postop Eval I Summary Anesthesia Postop Eval I Summary: Anesthesia Postop Eval I: Assessment Summary Airway patent Yes 10/25/24 13:33 [email or web address] Spontaneous unlabored Yes 10/25/24 13:33 [email or web address] respirations Mental status Awake,Calm 10/25/24 13:33 [email or web address] nausea No 10/25/24 13:33 [email or web address] Vomiting No 10/25/24 13:33 [email or web address] Anesthesia Postop Eval I: Fluid Summary Crystalloid volume administer 40 10/25/24 13:33 [email or web address] (ml) Colloids volume administered ( ml) Blood Product volume administered (ml) Total IV fluid infused 40 10/25/24 13:33 [email or web address] Anesthesia Postop Eval I: Summary Notes Anesthesia Complication No 10/25/24 13:33 [email or web address] Anesthesia Complication Comment: Post-operative progress note Anesthesia: Postop Eval II Evaluation Mental status: Awake Pain Level: 0 nausea: No Vomiting: No
== END 2024-10-25 14:15 | disposition home or self-care (01) ==
LOC: EN 11:27 → AC 11:30
PROVIDERS: PCP Family Medicine; Referring Provider Family Medicine; Visit Provider Internal Medicine Gastroenterology
PROC: 0DJD8ZZ Inspection of Lower Intestinal Tract, Via Natural or Artificial Opening Endoscopic (ICD-10-PCS; CPT 45378; principal; 2024-10-25 12:40)
DX: Z12.11 Encounter for screening for malignant neoplasm of colon (principal); K57.30 Diverticulosis of large intestine without perforation or abscess without bleeding; I25.10 Atherosclerotic heart disease of native coronary artery without angina pectoris; I10 Essential (primary) hypertension; Z95.1 Presence of aortocoronary bypass graft; Z79.82 Long term (current) use of aspirin; Z79.899 Other long term (current) drug therapy; Z87.891 Personal history of nicotine dependence
CPT/HCPCS: 45378; J2405

== ENCOUNTER → 2024-11-25 | Outpatient (CLI) | payer BC, SELFPAY ==
[2024-11-25 12:04] LABS: AST(SGOT) 42 U/L (<=31); Alanine Aminotransfer ALT/SGPT 43 U/L (<=34); Albumin, Serum 3.7 g/dL (3.4-4.8); Alkaline Phosphatase 94 U/L (35-104); Bilirubin, Direct 0.16 mg/dL (0.00-0.30); Cholesterol 180 mg/dL (<=200); Globulin 3.2 g/dL (2.2-4.2); High Density Lipoprotein 50 mg/dL; Low Density Lipoprotein Calc. 106 mg/dL; Protein, Total 6.9 g/dL (5.9-8.4); Total Bilirubin 0.34 mg/dL (0.00-1.30); Triglycerides 120 mg/dL; Very Low Density Lipoprotein 24 mg/dL (5-40)
== END | disposition home or self-care (01) ==
LOC: LAB 10:26
PROVIDERS: PCP Family Medicine; Referring Provider Physician Assistant Medical; Visit Provider Physician Assistant Medical
DX: E78.5 Hyperlipidemia, unspecified (principal)
CPT/HCPCS: 36415; 80061; 80076

== ENCOUNTER 2025-07-21 07:43 | Outpatient (CLI) | payer BC, SELFPAY ==
[2025-07-21 07:52] VITALS: BP 123/68; PULSE 80; RESP 16; TEMP 36.3; O2SAT 98; BMI 21.4
[2025-07-21] MEDS: 0.9% NaCl Peripheral Flush Adult IV ×4 (07:58→09:10)
[2025-07-21] MEDS: NORMAL SALINE 0.9% IV (08:05)
[2025-07-21] MEDS: COSYNTROPIN IV (08:05)
[2025-07-21 08:46] LABS: CORTISOL AM 11.00 ug/dL (6.02-18.40); Vitamin D,25 Hydroxy 86.1 ng/mL (30-100)
[2025-07-21 09:25] LABS: CORTISOL AM 20.40 ug/dL (6.02-18.40)
[2025-07-21 10:05] LABS: CORTISOL AM 23.70 ug/dL (6.02-18.40)
[2025-07-22 18:12] LABS: Thyroglobulin, Serum Qt. < 0.1 ng/mL (1.5-38.5)
== END 2025-07-21 23:59 | disposition home or self-care (01) ==
LOC: MEDOUTP 07:43
PROVIDERS: PCP Family Medicine; Referring Provider Internal Medicine Endocrinology, Diabetes & Metabolism; Visit Provider Internal Medicine Endocrinology, Diabetes & Metabolism
DX: E89.6 Postprocedural adrenocortical (-medullary) hypofunction (principal); C73 Malignant neoplasm of thyroid gland; E89.0 Postprocedural hypothyroidism; M81.0 Age-related osteoporosis without current pathological fracture; Z86.39 Personal history of other endocrine, nutritional and metabolic disease
CPT/HCPCS: 36415; 82306; 82533; 84432; 84439; 84443; 86800; 96375; A4216; J0834

== ENCOUNTER → 2025-09-12 | Outpatient (CLI) | payer BC, SELFPAY | END | disposition home or self-care (01) | PROVIDERS: PCP Family Medicine; Referring Provider Internal Medicine Endocrinology, Diabetes & Metabolism; Visit Provider Internal Medicine Endocrinology, Diabetes & Metabolism | DX: E89.0 Postprocedural hypothyroidism (principal) | CPT/HCPCS: 36415; 84443 ==